=== PATIENT | male | born 1960 | race American Indian/Alaskan Native ===

== ENCOUNTER 2017-05-04 04:39 | Inpatient (IN) | payer OTHER ==
[2017-05-04] MEDS ORDERED: QUELICIN ONE ×2 (04:50→05:21)
[2017-05-04] MEDS ORDERED: KETALAR ONE (04:50)
[2017-05-04] MEDS ORDERED: AMIDATE IV ONE (04:50)
[2017-05-04] MEDS ORDERED: ZEMURON IV ONE (04:50)
[2017-05-04] MEDS ORDERED: VERSED IV ONE ×2 (04:50→08:25)
[2017-05-04] MEDS ORDERED: DIPRIVAN 10 MG/ML IV ONE ×2 (04:56→23:39)
[2017-05-04] MEDS ORDERED: DIPRIVAN 10 MG/ML 1,000 MG/100 ML BOTTLE IV ONE (05:00)
[2017-05-04 05:18] LABS: Hematocrit 45.7 % (35.5-45.6); Hemoglobin 15.6 gm/dl (11.8-15.2); Mean Corpuscular HGB Conc 34 % (32-34); Mean Corpuscular Hemoglobin 30 pg (28-32); Mean Corpuscular Volume 89 fl (84-94); Platelet Count 220 K/mm3 (140-440); Red Blood Count 5.16 M/mm3 (3.65-5.03); Red Cell Distribution Width 14.2 % (13.2-15.2); White Blood Count 6.5 K/mm3 (4.5-11.0)
--- NOTE | 2017-05-04 05:25 | Emergency Department Report ---
ED Chest Pain HPI - General Chief Complaint: Chest Pain Stated Complaint: CP Time Seen by Provider: 05/04/17 04:40 Source: patient, EMS Mode of arrival: Stretcher Limitations: No Limitations - History of Present Illness Initial Comments: A 56-year-old male brought in by EMS with complaints of just chest pain. There was awoken from sleep by chest pain. Upon arrival he ER he suddenly became unresponsive and was having seizure-like activity. His blood pressure was very elevated to the 230s systolic.reading. On the monitor, patient had ventricular tachycardia activity. Reads as high as 210s. Patient was immediately cardioverted. 200 J [ synchronized cardioversion] patient was then intubated emergently Related to history of present having about 6 bypasses. He is very noncompliant. He uses local Remedies for any of his problems MD Complaint: other (unable to obtain history from patient due to his present medical status) -: Sudden Onset: during rest Pain Location: other (anterior chest wall) - Related Data Allergies Allergy/AdvReac Type Severity Reaction Status Date / Time No Known Allergies Allergy Verified 05/04/17 04:54 Heart Score - HEART Score History: Highly suspicious EKG: Significant ST-depression Age: 45-65 Risk factors: > 3 risk factors or hx of atherosclerotic disease Troponin: < normal limit HEART Score: 7 - Critical Actions Critical Actions: >7 pts:50-65% risk of adverse cardiac event. Early invasive measures ED Review of Systems ROS: Stated complaint: CP Other details as noted in HPI Comment: Unobtainable due to pts medical conditions ED Past Medical Hx - Past Medical History Previous Medical History?: Yes Hx Hypertension: Yes Hx Heart Attack/AMI: Yes - Surgical History Past Surgical History?: Yes Additional Surgical History: open heart - Social History Smoking Status: Current Every Day Smoker ED Physical Exam - General Limitations: No Limitations General appearance: in distress (severe distress) - Head Head exam: Present: other (bleeding from his mouth) - ENT ENT exam: Present: mucous membranes moist, other (bleeding from his oral cavity) - Neck Neck exam: Present: normal inspection, full ROM. Absent: tenderness, meningismus, lymphadenopathy - Respiratory Respiratory exam: Present: respiratory distress, wheezes, rales, rhonchi, decreased breath sounds. Absent: chest wall tenderness, accessory muscle use - Cardiovascular Cardiovascular Exam: Present: tachycardia, irregular rhythm - GI/Abdominal GI/Abdominal exam: Present: soft, diminished bowel sounds. Absent: distended, tenderness, guarding, rebound, hyperactive bowel sounds, hypoactive bowel sounds , organomegaly, mass - Rectal Rectal exam: Present: deferred - Extremities Exam Extremities exam: Present: normal inspection, full ROM, normal capillary refill. Absent: pedal edema - Neurological Exam Neurological exam: Present: altered, other (patient's agitated, restless he was immediately intubated) ED Course Vital Signs 05/04/17 05/04/17 05/04/17 05:23 05:24 05:25 Pulse Rate 96 H 99 H 104 H Respiratory 11 L 10 L 18 Rate Blood Pressure 238/176 238/176 238/176 Blood Pressure [Left] O2 Sat by Pulse 95 97 97 Oximetry 05/04/17 05/04/17 05/04/17 05:26 05:27 05:29 Pulse Rate 101 H 98 H 100 H Respiratory 16 16 14 Rate Blood Pressure 225/134 225/134 225/134 Blood Pressure [Left] O2 Sat by Pulse 98 98 98 Oximetry 05/04/17 05/04/17 05/04/17 05:30 05:31 05:32 Pulse Rate 100 H 98 H 97 H Respiratory 15 15 16 Rate Blood Pressure 208/127 208/127 208/127 Blood Pressure [Left] O2 Sat by Pulse 98 98 98 Oximetry 05/04/17 05/04/17 05/04/17 05:33 05:35 05:37 Pulse Rate 98 H 95 H 90 Respiratory 22 12 13 Rate Blood Pressure 208/127 208/127 208/127 Blood Pressure [Left] O2 Sat by Pulse 98 98 99 Oximetry 05/04/17 05/04/17 05/04/17 05:39 05:41 05:43 Pulse Rate 101 H 93 H 89 Respiratory 26 H 20 20 Rate Blood Pressure 208/127 208/127 208/127 Blood Pressure [Left] O2 Sat by Pulse 98 97 96 Oximetry 05/04/17 05/04/17 05/04/17 05:45 05:47 05:49 Pulse Rate 85 86 88 Respiratory 13 14 16 Rate Blood Pressure 152/97 152/97 152/97 Blood Pressure [Left] O2 Sat by Pulse 98 99 100 Oximetry 05/04/17 05/04/17 05/04/17 05:51 05:52 05:53 Pulse Rate 86 85 89 Respiratory 22 16 Rate Blood Pressure 152/97 208/127 208/127 Blood Pressure [Left] O2 Sat by Pulse 99 100 100 Oximetry 05/04/17 05/04/17 05/04/17 06:25 06:27 06:28 Pulse Rate 82 78 81 Respiratory 15 16 15 Rate Blood Pressure 208/127 130/79 130/79 Blood Pressure [Left] O2 Sat by Pulse 99 98 99 Oximetry 05/04/17 05/04/17 05/04/17 06:29 06:31 06:33 Pulse Rate 90 83 82 Respiratory 24 17 14 Rate Blood Pressure 130/79 138/88 132/82 Blood Pressure [Left] O2 Sat by Pulse 98 99 99 Oximetry 05/04/17 05/04/17 05/04/17 06:34 06:35 06:37 Pulse Rate 78 80 79 Respiratory 19 18 17 Rate Blood Pressure 132/82 132/82 130/80 Blood Pressure [Left] O2 Sat by Pulse 99 99 99 Oximetry 05/04/17 05/04/17 05/04/17 06:39 06:40 06:41 Pulse Rate 78 75 77 Respiratory 15 16 15 Rate Blood Pressure 126/77 126/77 126/77 Blood Pressure [Left] O2 Sat by Pulse 99 99 100 Oximetry 05/04/17 05/04/17 05/04/17 06:43 06:45 06:46 Pulse Rate 77 76 78 Respiratory 15 11 L 16 Rate Blood Pressure 123/78 125/78 125/78 Blood Pressure [Left] O2 Sat by Pulse 99 99 99 Oximetry 05/04/17 05/04/17 05/04/17 06:47 06:49 06:51 Pulse Rate 76 76 77 Respiratory 9 L 16 16 Rate Blood Pressure 125/78 127/76 131/81 Blood Pressure [Left] O2 Sat by Pulse 99 99 100 Oximetry 05/04/17 05/04/17 05/04/17 06:52 06:53 06:55 Pulse Rate 74 75 91 H Respiratory 16 16 18 Rate Blood Pressure 131/81 131/81 142/107 Blood Pressure 127/76 [Left] O2 Sat by Pulse 99 100 99 Oximetry - Reevaluation(s) Reevaluation #1: 05/04/17 07:06 Patient signed over to Dr. Bacon - Consultations Consultation #1: 05/04/[address] Corrales, php magento developer on-call. He advised we do a CAT scan of his head to rule out a possible brain bleed. Get patient admitted to the hospitalist and he'll take that in the It Architect later. Hold off on heparin Consultation #2: 05/04/17 07:[address] Reno, she accepts patient for admission - Intubation Sedative: Ketamine Paralytic: Succinylcholine Laryngoscope: Ninfa Size: 3 Assist Device Used: other (gluidescope) Tube Placement Confirmation: visualized tube passing t, equal breath sounds bilat Patient Tolerated Procedure: no complications Intubation Complications: difficult intubation JUDY score - Judy Score Age > 65: (0) No Aspirin use within the Past 7 Days: (0) No 3 or more CAD Risk Factors: (1) Yes 2 or more Angina events in past 24 hrs: (0) No Known CAD with more than 50% Stenosis: (1) Yes Elevated Cardiac Markers: (0) No ST Deviation Greater than 0.5mm: (1) Yes JUDY Score: 3 ED Medical Decision Making - Lab Data Result diagrams: 05/04/17 05:00 05/04/17 05:15 - EKG Data -: EKG Interpreted by Me - EKG Data 05/04/17 07:20 Sinus rhythm with left axis ST depression in the 1 and aVL, LVH, ST elevations in the V1 and V2 and V3 Critical Care Time: Yes Critical care attestation.: If time is entered above; I have spent that time in minutes in the direct care of this critically ill patient, excluding procedure time. Critical Care Time: 45 mins ED Disposition Clinical Impression: Acute coronary syndrome Disposition: DC/TX-65 PSY HOSP/PSY UNIT Is pt being admited?: Yes Does the pt Need Aspirin: Yes Condition: Critical Referrals: PRIMARY CARE, [Primary Care Provider] - 3-5 Days Time of Disposition: 07:22
--- NOTE | 2017-05-04 05:33 | XRay Report ---
FINAL REPORT EXAM: XR CHEST 1V AP HISTORY: E T TUBE PLACEMENT TECHNIQUE: A supine view of the chest was submitted. FINDINGS: The tip of the ET tube is at the be and should be pulled back 2 cm for optimal positioning. The lungs are clear. The heart size is normal. There are sternotomy sutures. Bones and soft tissues well maintained. IMPRESSION: The tip of the ET tube is at the be and should be pulled back 2 cm for optimal positioning No evidence of congestion or infiltrates.
[2017-05-04 05:37] LABS: Anion Gap 20 mmol/L; BUN/Creatinine Ratio 6; Blood Urea Nitrogen 5 mg/dL (9-20); Calcium 8.9 mg/dL (8.4-10.2); Carbon Dioxide 27 mmol/L (22-30); Chloride 97.8 mmol/L (98-107); Glucose 107 mg/dL (75-100); Potassium 3.8 mmol/L (3.6-5.0); Sodium 141 mmol/L (137-145)
[2017-05-04] MEDS ORDERED: TRIDIL DRIP 50MG/250ML 50 MG/250 ML BOTTLE IV SCH (06:00)
[2017-05-04 06:09] LABS: INR 0.86 (0.87-1.13)
[2017-05-04 06:10] LABS: Partial Thromboplastin Time 33.5 Sec. (24.2-36.6)
[2017-05-04 06:14] LABS: Alanine Aminotransferase 17 units/L (7-56); Albumin 4.1 g/dL (3.9-5); Albumin/Globulin Ratio 1.2 %; Alkaline Phosphatase 109 units/L (35-129); Anion Gap 20 mmol/L; BUN/Creatinine Ratio 6; Blood Urea Nitrogen 6 mg/dL (9-20); Carbon Dioxide 27 mmol/L (22-30); Chloride 98.2 mmol/L (98-107); Glucose 108 mg/dL (75-100); Potassium 3.8 mmol/L (3.6-5.0); Sodium 141 mmol/L (137-145); Total Protein 7.6 g/dL (6.3-8.2)
[2017-05-04 06:25] LABS: Basophils % (Manual) 0 % (0.0-1.8); Blastocytes % (Manual) 0 %; Diff Status Complete; RBC Morphology Normal
--- NOTE | 2017-05-04 06:32 | Cat Scan Report ---
FINAL REPORT EXAM: CT HEAD/BRAIN WO CON HISTORY: Seizure like activity, malignant hypertension, TECHNIQUE: Routine axial imaging was obtained of the brain without IV contrast. FINDINGS: There is a remote infarct in the left occipital lobe. There is no evidence of acute stroke or hemorrhage. The ventricular system is appropriate in size and is symmetric. The sinuses are clear. The mastoid air cells are well pneumatized. The calvarium appears intact. IMPRESSION: No evidence of acute stroke or hemorrhage. 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
[2017-05-04 07:07] LABS: ISTAT Base Excess 1; ISTAT HCO3 26.7; ISTAT PCO2 49.1 (35-45); ISTAT PH 7.344 (7.35-7.45); ISTAT PO2 129 (80-105); ISTAT SO2 99; ISTAT TCO2 28
[2017-05-04] MEDS: DIPRIVAN 10 MG/ML 1,000 MG/100 ML BOTTLE IV SCH ×4 (07:23→23:13)
[2017-05-04] MEDS ORDERED: XYLOCAINE 1% 20 mL ONE (07:37)
[2017-05-04] MEDS ORDERED: HEPARIN/NS 5000 UNIT/500ML(CATH LAB) 0 ML IR ONE (07:37)
[2017-05-04] MEDS ORDERED: SUBLIMAZE ONE ×2 (07:38→12:40)
[2017-05-04] MEDS ORDERED: VERSED ONE ×2 (07:38→12:40)
[2017-05-04 07:42] LABS: Urine Drugs of Abuse Note Disclamer
[2017-05-04] MEDS ORDERED: NACL 0.9% 500 ML IV SCH (08:00)
[2017-05-04] MEDS ORDERED: NACL 0.9% 500 ML 500 ML IV SCH (08:00)
[2017-05-04 08:12] LABS: Bilirubin,Urine NEG (Negative); Blood,Urine NEG (Negative); Ketones,Urine NEG (Negative); Leukocyte Esterase,Urine NEG (Negative); Mucus,Urine FEW /HPF; Nitrite,Urine NEG (Negative); Protein,Urine <15 mg/dL mg/dL (Negative); Urobilinogen,Urine < 2.0 mg/dL (<2.0)
--- NOTE | 2017-05-04 08:16 | History and Physical Report ---
<GARY ESCALANTE - Last Filed: 05/04/17 13:05> History of Present Illness Date of examination: 05/04/17 Date of admission: 05/04/2017 Chief complaint: left-side chest pain History of present illness: Patient is a 56 years old black male with past medical history of 6 times bypass, CVA and Hypertension who presented by EMS from home with Left -side chest pain. Patient intubated and sedated therefore, unable to provide detail history. Per ER physician and charts, Patient came in for chest pain; he awoken from sleep by chest pain and called 911. Patient upon arrival to the emergency department he became unresponsive and he had seizure like activities. Patient found to have in hypertensive emergency with blood pressure 238/176 ventricular tachycardia with rate 200's, then cardioverted. Patient unable to protect his airway. Patient intubated and placed on vent support. Patient found to have Sinus rhythm with left axis ST depression in the 1 and aVL, LVH, ST elevations in the V1 and V2 and V3. Cardiology consulted patient is having emergent cath now. No reports of fever, chills, trauma, loss of bowel or bladder continence or recent ill contacts. Past History Past Medical History: hypertension, other (6 times bypass ) Past Surgical History: Other (6 times bypass ) Social history: other (unable to assess due to patient's mental status) Medications and Allergies Allergies Allergy/AdvReac Type Severity Reaction Status Date / Time No Known Allergies Allergy Verified 05/04/17 04:54 Active Meds: Active Medications Nitroglycerin/Dextrose (Tridil Drip 50mg/250ml) 50 mg in 250 mls @ 3 mls/hr IV TITR [facility]; 10 MCG/MIN PRN Reason: Protocol Last Admin: 05/04/17 06:33 Dose: 5 mcg/min, 1.5 mls/hr Propofol (Diprivan 10 Mg/Ml) 1,000 mg in 100 mls @ 3.13 mls/hr IV TITR [facility]; 5 MCG/KG/MIN PRN Reason: Protocol Last Admin: 05/04/17 07:23 Dose: 50 mcg/kg/min, 31.298 mls/hr Sodium Chloride (Nacl 0.9% 500 Ml) 500 mls @ 50 mls/hr IV DIRECT [facility] Stop: 05/04/17 17:59 Sodium Chloride (Nacl 0.9% 500 Ml) 1 ml IV DIRECT [facility] Review of Systems ROS unobtainable: due to mental status (unable to assess due to patient's mental status) Exam - Constitutional Vitals: Temp Pulse Resp BP Pulse Ox 91 H 18 127/76 99 05/04/17 06:55 05/04/17 06:55 05/04/17 06:55 05/04/17 06:55 General appearance: Present: severe distress, other (intubated and sedated) - EENT Eyes: Present: PERRL - Neck Neck: Present: supple - Respiratory Respiratory effort: normal Respiratory: bilateral: CTA - Cardiovascular Rhythm: regular Heart Sounds: Present: S1 & S2 - Abdominal General gastrointestinal: Present: soft, non-tender Male genitourinary: Present: deferred - Rectal Rectal Exam: deferred - Integumentary Integumentary: Present: clear, warm, dry (vital data:) - Musculoskeletal Musculoskeletal: strength equal bilaterally - Psychiatric Psychiatric: agitated, other (intubated and sedated) - Neurologic Neurologic: moves all extremities - Allied Health Allied health notes reviewed: nursing Results - Labs CBC & Chem 7: 05/04/17 05:00 05/04/17 05:15 Labs: Laboratory Last Values WBC 6.5 K/mm3 (4.5-11.0) 05/04/17 05:00 RBC 5.16 M/mm3 (3.65-5.03) H 05/04/17 05:00 Hgb 15.6 gm/dl (11.8-15.2) H 05/04/17 05:00 Hct 45.7 % (35.5-45.6) H 05/04/17 05:00 MCV 89 fl (84-94) 05/04/17 05:00 MCH 30 pg (28-32) 05/04/17 05:00 MCHC 34 % (32-34) 05/04/17 05:00 RDW 14.2 % (13.2-15.2) 05/04/17 05:00 Plt Count 220 K/mm3 (140-440) 05/04/17 05:00 Lymph % (Auto) Medicine Teacher 05/04/17 05:00 Add Manual Diff Complete 05/04/17 05:00 Total Counted 100 05/04/17 05:00 Seg Neutrophils % Medicine Teacher 05/04/17 05:00 Seg Neuts % (Manual) 34.0 % (40.0-70.0) L 05/04/17 05:00 Band Neutrophils % 0 % 05/04/17 05:00 Lymphocytes % (Manual) 56.0 % (13.4-35.0) H 05/04/17 05:00 Reactive Lymphs % (Man) 1.0 % 05/04/17 05:00 Monocytes % (Manual) 7.0 % (0.0-7.3) 05/04/17 05:00 Eosinophils % (Manual) 2.0 % (0.0-4.3) 05/04/17 05:00 Basophils % (Manual) 0 % (0.0-1.8) 05/04/17 05:00 Metamyelocytes % 0 % 05/04/17 05:00 Myelocytes % 0 % 05/04/17 05:00 Promyelocytes % 0 % 05/04/17 05:00 Blast Cells % 0 % 05/04/17 05:00 Nucleated RBC % Not Reportable 05/04/17 05:00 Seg Neutrophils # Man 2.2 K/mm3 (1.8-7.7) 05/04/17 05:00 Band Neutrophils # 0.0 K/mm3 05/04/17 05:00 Lymphocytes # (Manual) 3.6 K/mm3 (1.2-5.4) 05/04/17 05:00 Abs React Lymphs (Man) 0.1 K/mm3 05/04/17 05:00 Monocytes # (Manual) 0.5 K/mm3 (0.0-0.8) 05/04/17 05:00 Eosinophils # (Manual) 0.1 K/mm3 (0.0-0.4) 05/04/17 05:00 Basophils # (Manual) 0.0 K/mm3 (0.0-0.1) 05/04/17 05:00 Metamyelocytes # 0.0 K/mm3 05/04/17 05:00 Myelocytes # 0.0 K/mm3 05/04/17 05:00 Promyelocytes # 0.0 K/mm3 05/04/17 05:00 Blast Cells # 0.0 K/mm3 05/04/17 05:00 WBC Morphology Not Reportable 05/04/17 05:00 Hypersegmented Neuts Not Reportable 05/04/17 05:00 Hyposegmented Neuts Not Reportable 05/04/17 05:00 Hypogranular Neuts Not Reportable 05/04/17 05:00 Smudge Cells Not Reportable 05/04/17 05:00 Toxic Granulation Not Reportable 05/04/17 05:00 Toxic Vacuolation Not Reportable 05/04/17 05:00 Dohle Bodies Not Reportable 05/04/17 05:00 Pelger-Huet Anomaly Not Reportable 05/04/17 05:00 Moni Rods Not Reportable 05/04/17 05:00 Platelet Estimate Appears normal 05/04/17 05:00 Clumped Platelets Not Reportable 05/04/17 05:00 Plt Clumps, EDTA Not Reportable 05/04/17 05:00 Large Platelets Not Reportable 05/04/17 05:00 Giant Platelets Not Reportable 05/04/17 05:00 Platelet Satelliting Not Reportable 05/04/17 05:00 Plt Morphology Comment Not Reportable 05/04/17 05:00 RBC Morphology Normal 05/04/17 05:00 Dimorphic RBCs Not Reportable 05/04/17 05:00 Polychromasia Not Reportable 05/04/17 05:00 Hypochromasia Not Reportable 05/04/17 05:00 Poikilocytosis Not Reportable 05/04/17 05:00 Anisocytosis Not Reportable 05/04/17 05:00 Microcytosis Not Reportable 05/04/17 05:00 Macrocytosis Not Reportable 05/04/17 05:00 Spherocytes Not Reportable 05/04/17 05:00 Pappenheimer Bodies Not Reportable 05/04/17 05:00 Sickle Cells Not Reportable 05/04/17 05:00 Target Cells Not Reportable 05/04/17 05:00 Tear Drop Cells Not Reportable 05/04/17 05:00 Ovalocytes Not Reportable 05/04/17 05:00 Helmet Cells Not Reportable 05/04/17 05:00 [place] Bodies Not Reportable 05/04/17 05:00 Frost Rings Not Reportable 05/04/17 05:00 Viet Cells Not Reportable 05/04/17 05:00 Bite Cells Not Reportable 05/04/17 05:00 Crenated Cell Not Reportable 05/04/17 05:00 Elliptocytes Not Reportable 05/04/17 05:00 Acanthocytes (Spur) Not Reportable 05/04/17 05:00 Rouleaux Not Reportable 05/04/17 05:00 Hemoglobin C Crystals Not Reportable 05/04/17 05:00 Schistocytes Not Reportable 05/04/17 05:00 Malaria parasites Not Reportable 05/04/17 05:00 Gerard Bodies Not Reportable 05/04/17 05:00 Hem Pathologist Commnt No 05/04/17 05:00 PT 12.2 Sec. (12.2-14.9) 05/04/17 05:00 INR 0.86 (0.87-1.13) L 05/04/17 05:00 APTT 33.5 Sec. (24.2-36.6) 05/04/17 05:00 D-Dimer < 135.00 ng/mlDDU (0-234) 05/04/17 05:00 POC ABG pH 7.344 (7.35-7.45) L 05/04/17 06:59 POC ABG pCO2 49.1 (35-45) H 05/04/17 06:59 POC ABG pO2 129 (80-105) H 05/04/17 06:59 POC ABG HCO3 26.7 05/04/17 06:59 POC ABG Total CO2 28 05/04/17 06:59 POC ABG O2 Sat 99 05/04/17 06:59 POC ABG Base Excess 1 05/04/17 06:59 FiO2 50 % 05/04/17 06:59 Sodium 141 mmol/L (137-145) 05/04/17 05:15 Potassium 3.8 mmol/L (3.6-5.0) 05/04/17 05:15 Chloride 98.2 mmol/L (98-107) 05/04/17 05:15 Carbon Dioxide 27 mmol/L (22-30) 05/04/17 05:15 Anion Gap 20 mmol/L 05/04/17 05:15 BUN 6 mg/dL (9-20) L 05/04/17 05:15 Creatinine 1.0 mg/dL (0.8-1.5) 05/04/17 05:15 Estimated GFR > 60 ml/min 05/04/17 05:15 BUN/Creatinine Ratio 6 % 05/04/17 05:15 Glucose 108 mg/dL (75-100) H 05/04/17 05:15 Calcium 9.0 mg/dL (8.4-10.2) 05/04/17 05:15 Magnesium 2.00 mg/dL (1.7-2.3) 05/04/17 05:15 Total Bilirubin 0.50 mg/dL (0.1-1.2) 05/04/17 05:15 AST 24 units/L (5-40) 05/04/17 05:15 ALT 17 units/L (7-56) 05/04/17 05:15 Alkaline Phosphatase 109 units/L (35-129) 05/04/17 05:15 Troponin T < 0.010 ng/mL (0.00-0.029) 05/04/17 05:00 Total Protein 7.6 g/dL (6.3-8.2) 05/04/17 05:15 Albumin 4.1 g/dL (3.9-5) 05/04/17 05:15 Albumin/Globulin Ratio 1.2 % 05/04/17 05:15 Urine Color Yellow (Yellow) 05/04/17 07:41 Urine Turbidity Clear (Clear) 05/04/17 07:41 Urine pH 6.0 (5.0-7.0) 05/04/17 07:41 Ur Specific [place] 1.013 (1.003-1.030) 05/04/17 07:41 Urine Protein <15 mg/dl mg/dL (Negative) 05/04/17 07:41 Urine Glucose (UA) Neg mg/dL (Negative) 05/04/17 07:41 Urine Ketones Neg mg/dL (Negative) 05/04/17 07:41 Urine Blood Neg (Negative) 05/04/17 07:41 Urine Nitrite Neg (Negative) 05/04/17 07:41 Urine Bilirubin Neg (Negative) 05/04/17 07:41 Urine Urobilinogen < 2.0 mg/dL (<2.0) 05/04/17 07:41 Ur Leukocyte Esterase Neg (Negative) 05/04/17 07:41 Urine WBC (Auto) 1.0 /HPF (0.0-6.0) 05/04/17 07:41 Urine RBC (Auto) 4.0 /HPF (0.0-6.0) 05/04/17 07:41 U Epithel Cells (Auto) < 1.0 /HPF (0-13.0) 05/04/17 07:41 Urine Mucus Few /HPF 05/04/17 07:41 - Imaging and Cardiology Chest x-ray: image reviewed (unremarkable) Assessment and Plan Assessment and plan: Patient is a 56 years old black male with past medical history of 6 times bypass, CVA and Hypertension who presented by EMS from home with Left -side chest pain. Patient intubated and sedated therefore, unable to provide detail history. Per ER physician and charts, Patient came in for chest pain; he awoken from sleep by chest pain and called 911. Patient upon arrival to the emergency department he became unresponsive and he had seizure like activities. Patient found to have in hypertensive emergency with blood pressure 238/176 ventricular tachycardia with rate 200's, then cardioverted. Patient unable to protect his airway. Patient intubated and placed on vent support. Acute encephalopathy Most likely due to ACS CT of the head shows, no acute intracranial process; just remote infarct in the left occipital lobe Treat underline cause Intubated/sedated Chest Pain We will admit to telemetry floor. Chest x-ray unremarkable EKG sinus rhythm with left axis ST depression in the 1 and aVL, LVH, ST elevations in the V1 and V2 and V3. Concerning for subacute VT. We will get repeat 12 lead EKG in ordred for any changes that have taken since the first obtained. Emergent Cath now Positive cardiac enzyme X2 Started on statins and complete lipid panel Start on aspirin Nitroglycerin when necessary Morphine ordered for pain Stress test ordered. Seizure CT of the head shows, no acute intracranial process remote infarct in the left occipital lobe MR of the brain ordered EEG pending Neurology consult IV Keppra started Ativan when necessary Frequent neuro assessment Supportive care Hypertension emergency Patient has hypertension but was not on any medication per family member Patient started on NTG drip for now we will transition to IV when BP is improved Closely monitor blood pressure DVT prophylaxis on Lovenox Advance Directives: Yes VTE prophylaxis?: Chemical Contraindication Mechanical VTE Prophylaxis: Treatment Not Indicated Plan of care discussed with patient/family: Yes <BEATRIZ LYNN - Last Filed: 05/05/17 00:05> History of Present Illness Date of admission: 05/04/17 08:18 Medications and Allergies Active Meds: Active Medications Albuterol (Proventil) 2.5 mg IH Q4HRT PRN PRN Reason: Shortness Of Breath Aspirin (Aspirin) 325 mg PO QDAY [facility] Atorvastatin Calcium (Lipitor) 40 mg PO QHS [facility] Last Admin: 05/04/17 22:33 Dose: 40 mg Bisacodyl (Dulcolax) 10 mg UT QDAY PRN PRN Reason: Constipation unrelieved by MOM Clopidogrel Bisulfate (Plavix) 75 mg PO QDAY [facility] Heparin Sodium (Porcine) (Heparin) 5,000 unit SUB-Q Q8HR [facility] Last Admin: 05/04/17 22:32 Dose: 5,000 unit Nitroglycerin/Dextrose (Tridil Drip 50mg/250ml) 50 mg in 250 mls @ 3 mls/hr IV TITR [facility]; 10 MCG/MIN PRN Reason: Protocol Last Titration: 05/04/17 12:53 Dose: 25 mcg/min, 7.5 mls/hr Propofol (Diprivan 10 Mg/Ml) 1,000 mg in 100 mls @ 3.13 mls/hr IV TITR [facility]; 5 MCG/KG/MIN PRN Reason: Protocol Last Admin: 05/04/17 23:13 Dose: 40 mcg/kg/min, 25.038 mls/hr Fentanyl Citrate (Fentanyl Drip Premix) 2,000 mcg in 100 mls @ 5.216 mls/hr IV TITR [facility]; 1 MCG/KG/HR PRN Reason: Protocol Last Admin: 05/04/17 14:30 Dose: 1 mcg/kg/hr, 5.216 mls/hr Levofloxacin/Dextrose (Levaquin 750mg/150ml) 750 mg in 150 mls @ 100 mls/hr IV Q24HR [facility] PRN Reason: Protocol Last Admin: 05/04/17 13:00 Dose: 100 mls/hr Levetiracetam 500 mg/ Sodium (Chloride) 105 mls @ 400 mls/hr IV Q12HR [facility] Last Admin: 05/04/17 23:13 Dose: 400 mls/hr Lorazepam (Ativan) 2 mg IV Q4H PRN PRN Reason: Seizures Metoprolol Tartrate (Lopressor) 50 mg PO BID [facility] Last Admin: 05/04/17 22:33 Dose: 50 mg Morphine Sulfate (Morphine) 2 mg IV Q4H PRN PRN Reason: Pain, Moderate (4-6) Ondansetron HCl (Zofran) 4 mg IV Q4H PRN PRN Reason: Nausea And Vomiting Sodium Chloride (Nacl 0.9% 500 Ml) 1 ml IV DIRECT [facility] Exam - Constitutional Vitals: Temp Pulse Resp BP Pulse Ox 98.8 F 73 16 135/82 99 05/05/17 00:00 05/04/17 23:32 05/04/17 19:41 05/04/17 23:32 05/04/17 23:32 Results - Labs CBC & Chem 7: 05/04/17 16:49 05/04/17 05:15 Labs: Laboratory Last Values WBC 6.5 K/mm3 (4.5-11.0) 05/04/17 05:00 RBC 5.16 M/mm3 (3.65-5.03) H 05/04/17 05:00 Hgb 14.5 gm/dl (11.8-15.2) 05/04/17 16:49 Hct 46.0 % (35.5-45.6) H 05/04/17 16:49 MCV 89 fl (84-94) 05/04/17 05:00 MCH 30 pg (28-32) 05/04/17 05:00 MCHC 34 % (32-34) 05/04/17 05:00 RDW 14.2 % (13.2-15.2) 05/04/17 05:00 Plt Count 243 K/mm3 (140-440) 05/04/17 16:49 Lymph % (Auto) Medicine Teacher 05/04/17 05:00 Add Manual Diff Complete 05/04/17 05:00 Total Counted 100 05/04/17 05:00 Seg Neutrophils % Medicine Teacher 05/04/17 05:00 Seg Neuts % (Manual) 34.0 % (40.0-70.0) L 05/04/17 05:00 Band Neutrophils % 0 % 05/04/17 05:00 Lymphocytes % (Manual) 56.0 % (13.4-35.0) H 05/04/17 05:00 Reactive Lymphs % (Man) 1.0 % 05/04/17 05:00 Monocytes % (Manual) 7.0 % (0.0-7.3) 05/04/17 05:00 Eosinophils % (Manual) 2.0 % (0.0-4.3) 05/04/17 05:00 Basophils % (Manual) 0 % (0.0-1.8) 05/04/17 05:00 Metamyelocytes % 0 % 05/04/17 05:00 Myelocytes % 0 % 05/04/17 05:00 Promyelocytes % 0 % 05/04/17 05:00 Blast Cells % 0 % 05/04/17 05:00 Nucleated RBC % Not Reportable 05/04/17 05:00 Seg Neutrophils # Man 2.2 K/mm3 (1.8-7.7) 05/04/17 05:00 Band Neutrophils # 0.0 K/mm3 05/04/17 05:00 Lymphocytes # (Manual) 3.6 K/mm3 (1.2-5.4) 05/04/17 05:00 Abs React Lymphs (Man) 0.1 K/mm3 05/04/17 05:00 Monocytes # (Manual) 0.5 K/mm3 (0.0-0.8) 05/04/17 05:00 Eosinophils # (Manual) 0.1 K/mm3 (0.0-0.4) 05/04/17 05:00 Basophils # (Manual) 0.0 K/mm3 (0.0-0.1) 05/04/17 05:00 Metamyelocytes # 0.0 K/mm3 05/04/17 05:00 Myelocytes # 0.0 K/mm3 05/04/17 05:00 Promyelocytes # 0.0 K/mm3 05/04/17 05:00 Blast Cells # 0.0 K/mm3 05/04/17 05:00 WBC Morphology Not Reportable 05/04/17 05:00 Hypersegmented Neuts Not Reportable 05/04/17 05:00 Hyposegmented Neuts Not Reportable 05/04/17 05:00 Hypogranular Neuts Not Reportable 05/04/17 05:00 Smudge Cells Not Reportable 05/04/17 05:00 Toxic Granulation Not Reportable 05/04/17 05:00 Toxic Vacuolation Not Reportable 05/04/17 05:00 Dohle Bodies Not Reportable 05/04/17 05:00 Pelger-Huet Anomaly Not Reportable 05/04/17 05:00 Moni Rods Not Reportable 05/04/17 05:00 Platelet Estimate Appears normal 05/04/17 05:00 Clumped Platelets Not Reportable 05/04/17 05:00 Plt Clumps, EDTA Not Reportable 05/04/17 05:00 Large Platelets Not Reportable 05/04/17 05:00 Giant Platelets Not Reportable 05/04/17 05:00 Platelet Satelliting Not Reportable 05/04/17 05:00 Plt Morphology Comment Not Reportable 05/04/17 05:00 RBC Morphology Normal 05/04/17 05:00 Dimorphic RBCs Not Reportable 05/04/17 05:00 Polychromasia Not Reportable 05/04/17 05:00 Hypochromasia Not Reportable 05/04/17 05:00 Poikilocytosis Not Reportable 05/04/17 05:00 Anisocytosis Not Reportable 05/04/17 05:00 Microcytosis Not Reportable 05/04/17 05:00 Macrocytosis Not Reportable 05/04/17 05:00 Spherocytes Not Reportable 05/04/17 05:00 Pappenheimer Bodies Not Reportable 05/04/17 05:00 Sickle Cells Not Reportable 05/04/17 05:00 Target Cells Not Reportable 05/04/17 05:00 Tear Drop Cells Not Reportable 05/04/17 05:00 Ovalocytes Not Reportable 05/04/17 05:00 Helmet Cells Not Reportable 05/04/17 05:00 [place] Bodies Not Reportable 05/04/17 05:00 Frost Rings Not Reportable 05/04/17 05:00 Viet Cells Not Reportable 05/04/17 05:00 Bite Cells Not Reportable 05/04/17 05:00 Crenated Cell Not Reportable 05/04/17 05:00 Elliptocytes Not Reportable 05/04/17 05:00 Acanthocytes (Spur) Not Reportable 05/04/17 05:00 Rouleaux Not Reportable 05/04/17 05:00 Hemoglobin C Crystals Not Reportable 05/04/17 05:00 Schistocytes Not Reportable 05/04/17 05:00 Malaria parasites Not Reportable 05/04/17 05:00 Gerard Bodies Not Reportable 05/04/17 05:00 Hem Pathologist Commnt No 05/04/17 05:00 PT 13.3 Sec. (12.2-14.9) 05/04/17 16:49 INR 0.96 (0.87-1.13) 05/04/17 16:49 APTT 27.8 Sec. (24.2-36.6) 05/04/17 16:49 D-Dimer < 135.00 ng/mlDDU (0-234) 05/04/17 05:00 POC ABG pH 7.344 (7.35-7.45) L 05/04/17 06:59 POC ABG pCO2 49.1 (35-45) H 05/04/17 06:59 POC ABG pO2 129 (80-105) H 05/04/17 06:59 POC ABG HCO3 26.7 05/04/17 06:59 POC ABG Total CO2 28 05/04/17 06:59 POC ABG O2 Sat 99 05/04/17 06:59 POC ABG Base Excess 1 05/04/17 06:59 FiO2 50 % 05/04/17 06:59 Sodium 141 mmol/L (137-145) 05/04/17 05:15 Potassium 3.8 mmol/L (3.6-5.0) 05/04/17 05:15 Chloride 98.2 mmol/L (98-107) 05/04/17 05:15 Carbon Dioxide 27 mmol/L (22-30) 05/04/17 05:15 Anion Gap 20 mmol/L 05/04/17 05:15 BUN 6 mg/dL (9-20) L 05/04/17 05:15 Creatinine 1.0 mg/dL (0.8-1.5) 05/04/17 05:15 Estimated GFR > 60 ml/min 05/04/17 05:15 BUN/Creatinine Ratio 6 % 05/04/17 05:15 Glucose 108 mg/dL (75-100) H 05/04/17 05:15 Calcium 9.0 mg/dL (8.4-10.2) 05/04/17 05:15 Magnesium 2.00 mg/dL (1.7-2.3) 05/04/17 05:15 Total Bilirubin 0.50 mg/dL (0.1-1.2) 05/04/17 05:15 AST 24 units/L (5-40) 05/04/17 05:15 ALT 17 units/L (7-56) 05/04/17 05:15 Alkaline Phosphatase 109 units/L (35-129) 05/04/17 05:15 Troponin T 0.090 ng/mL (0.00-0.029) H 05/04/17 10:13 Total Protein 7.6 g/dL (6.3-8.2) 05/04/17 05:15 Albumin 4.1 g/dL (3.9-5) 05/04/17 05:15 Albumin/Globulin Ratio 1.2 % 05/04/17 05:15 Triglycerides 97 mg/dL (2-149) 05/04/17 07:50 Cholesterol 176 mg/dL (50-199) 05/04/17 07:50 LDL Cholesterol Direct 114 mg/dL (50-130) 05/04/17 07:50 HDL Cholesterol 43 mg/dL (40-59) 05/04/17 07:50 Cholesterol/HDL Ratio 4.09 % 05/04/17 07:50 Urine Color Yellow (Yellow) 05/04/17 07:41 Urine Turbidity Clear (Clear) 05/04/17 07:41 Urine pH 6.0 (5.0-7.0) 05/04/17 07:41 Ur Specific [place] 1.013 (1.003-1.030) 05/04/17 07:41 Urine Protein <15 mg/dl mg/dL (Negative) 05/04/17 07:41 Urine Glucose (UA) Neg mg/dL (Negative) 05/04/17 07:41 Urine Ketones Neg mg/dL (Negative) 05/04/17 07:41 Urine Blood Neg (Negative) 05/04/17 07:41 Urine Nitrite Neg (Negative) 05/04/17 07:41 Urine Bilirubin Neg (Negative) 05/04/17 07:41 Urine Urobilinogen < 2.0 mg/dL (<2.0) 05/04/17 07:41 Ur Leukocyte Esterase Neg (Negative) 05/04/17 07:41 Urine WBC (Auto) 1.0 /HPF (0.0-6.0) 05/04/17 07:41 Urine RBC (Auto) 4.0 /HPF (0.0-6.0) 05/04/17 07:41 U Epithel Cells (Auto) < 1.0 /HPF (0-13.0) 05/04/17 07:41 Urine Mucus Few /HPF 05/04/17 07:41 Urine Opiates Screen Presumptive negative 05/04/17 07:41 Urine Methadone Screen Presumptive negative 05/04/17 07:41 Ur Barbiturates Screen Presumptive negative 05/04/17 07:41 Ur Phencyclidine Scrn Presumptive negative 05/04/17 07:41 Ur Amphetamines Screen Presumptive negative 05/04/17 07:41 U Benzodiazepines Scrn Presumptive positive 05/04/17 07:41 Urine Cocaine Screen Presumptive negative 05/04/17 07:41 U Marijuana (THC) Screen Presumptive positive 05/04/17 07:41 Drugs of Abuse Note Disclamer 05/04/17 07:41 Assessment and Plan Assessment and plan: I saw and evaluated the patient. I agree with the findings and the plan of care as documented in the Nurse Practitioner's~note, with the following corrections and additions.
[2017-05-04] MEDS ORDERED: PROVENTIL IH PRN (09:00)
[2017-05-04] MEDS ORDERED: VERSED IV NR (09:00)
[2017-05-04] MEDS ORDERED: DULCOLAX PR PRN (09:00)
[2017-05-04] MEDS ORDERED: PLAVIX PO ONE (09:00)
[2017-05-04] MEDS ORDERED: ZOFRAN IV PRN (09:00)
--- NOTE | 2017-05-04 09:52 | XRay Report ---
AP CHEST: HISTORY: Nasogastric tube placement The endotracheal tube has been retracted to the level of the clavicles since earlier today at 0510 hours. A nasogastric tube has been inserted which is followed to the fundus of the stomach. 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 Borderline heart size is stable. The lungs are clear. No acute process is noted. IMPRESSION: Unremarkable AP chest. Lines and tubes are in good position.
[2017-05-04] MEDS ORDERED: HEPARIN SUB-Q SCH (10:00)
[2017-05-04] MEDS ORDERED: ATIVAN IV PRN (12:18)
--- NOTE | 2017-05-04 12:33 | Consultation ---
History of Present Illness - Reason for Consult Consult date: 05/04/17 seizure - History of Present Illness I have ordered an EEG and the current doses of keppra IV and Ativan are appropriate for seizure control I will follow up Past History Past Medical History: hypertension, other (6 times bypass ) Past Surgical History: Other (6 times bypass ) Social history: other (unable to assess due to patient's mental status) Medications and Allergies Allergies Allergy/AdvReac Type Severity Reaction Status Date / Time No Known Allergies Allergy Verified 05/04/17 04:54 Active Meds: Active Medications Albuterol (Proventil) 2.5 mg IH Q4HRT PRN PRN Reason: Shortness Of Breath Atorvastatin Calcium (Lipitor) 40 mg PO QHS [facility] Bisacodyl (Dulcolax) 10 mg ID QDAY PRN PRN Reason: Constipation unrelieved by MOM Clopidogrel Bisulfate (Plavix) 75 mg PO QDAY [facility] Heparin Sodium (Porcine) (Heparin) 5,000 unit SUB-Q Q12HR [facility] Last Admin: 05/04/17 10:20 Dose: 5,000 unit Nitroglycerin/Dextrose (Tridil Drip 50mg/250ml) 50 mg in 250 mls @ 3 mls/hr IV TITR [facility]; 10 MCG/MIN PRN Reason: Protocol Last Titration: 05/04/17 11:38 Dose: 20 mcg/min, 6 mls/hr Propofol (Diprivan 10 Mg/Ml) 1,000 mg in 100 mls @ 3.13 mls/hr IV TITR [facility]; 5 MCG/KG/MIN PRN Reason: Protocol Last Admin: 05/04/17 11:00 Dose: 50 mcg/kg/min, 31.298 mls/hr Sodium Chloride (Nacl 0.9% 500 Ml) 500 mls @ 50 mls/hr IV DIRECT [facility] Stop: 05/04/17 17:59 Fentanyl Citrate (Fentanyl Drip Premix) 2,000 mcg in 100 mls @ 5.216 mls/hr IV TITR [facility]; 1 MCG/KG/HR PRN Reason: Protocol Levofloxacin/Dextrose (Levaquin 750mg/150ml) 750 mg in 150 mls @ 100 mls/hr IV Q24HR OSCAR PRN Reason: Protocol Levetiracetam 500 mg/ Sodium (Chloride) 105 mls @ 400 mls/hr IV Q12HR OSCAR Lorazepam (Ativan) 2 mg IV Q4H PRN PRN Reason: Seizures Midazolam HCl (Versed) 2 mg IV ONCE NR Stop: 05/04/17 14:00 Morphine Sulfate (Morphine) 2 mg IV Q4H PRN PRN Reason: Pain, Moderate (4-6) Ondansetron HCl (Zofran) 4 mg IV Q4H PRN PRN Reason: Nausea And Vomiting Sodium Chloride (Nacl 0.9% 500 Ml) 1 ml IV DIRECT OSCAR Exam - Constitutional Vitals: Temp Pulse Resp BP Pulse Ox 97.6 F 77 14 191/117 100 05/04/17 11:01 05/04/17 11:35 05/04/17 11:35 05/04/17 11:35 05/04/17 11:35 Results - Labs CBC & Chem 7: 05/04/17 05:00 05/04/17 05:15 Labs: Abnormal lab results 05/04/17 Range/Units 10:13 Troponin T 0.090 H (0.00-0.029) ng/mL
[2017-05-04] MEDS ORDERED: HEPARIN/NS 5000 UNIT/500ML(CATH LAB) 1,000 ML IR ONE (12:38)
[2017-05-04] MEDS ORDERED: HEPARIN 10,000 UNITS/10 ML ONE (12:39)
[2017-05-04] MEDS ORDERED: XYLOCAINE 2% INFILTRATI ONE ×3 (12:40→17:25)
[2017-05-04] MEDS: LEVAQUIN 750MG/150ML 750 MG/150 ML BAG IV SCH (13:00)
--- NOTE | 2017-05-04 13:46 | Consultation ---
History of Present Illness Consult date: 05/04/17 History of present illness: 56 year old presenting with AMS and found to be in [place] per ER physician - no strips available. Patient received a 200 J DCCV. Patient was intubated due to respiratory failure, he is known to have a history of sleep apnea. Family reports that patient had a CABG 5 years ago in [place]. No anatomy report is available. ECG is showing dynamic anterior T wave changes with inferior Q waves. First set of troponin is negative. Patient is non-compliant and takes herbal supplements at home instead of guidelines directed and proven medications Past History Past Medical History: hypertension, other (6 times bypass ) Past Surgical History: Other (6 times bypass ) Social history: other (unable to assess due to patient's mental status) Medications and Allergies Allergies Allergy/AdvReac Type Severity Reaction Status Date / Time No Known Allergies Allergy Verified 05/04/17 04:54 Active Meds: Active Medications Albuterol (Proventil) 2.5 mg IH Q4HRT PRN PRN Reason: Shortness Of Breath Atorvastatin Calcium (Lipitor) 40 mg PO QHS OSCAR Bisacodyl (Dulcolax) 10 mg MS QDAY PRN PRN Reason: Constipation unrelieved by MOM Clopidogrel Bisulfate (Plavix) 75 mg PO QDAY OSCAR Heparin Sodium (Porcine) (Heparin) 5,000 unit SUB-Q Q12HR OSCAR Last Admin: 05/04/17 10:20 Dose: 5,000 unit Nitroglycerin/Dextrose (Tridil Drip 50mg/250ml) 50 mg in 250 mls @ 3 mls/hr IV TITR OSCAR; 10 MCG/MIN PRN Reason: Protocol Last Titration: 05/04/17 12:53 Dose: 25 mcg/min, 7.5 mls/hr Propofol (Diprivan 10 Mg/Ml) 1,000 mg in 100 mls @ 3.13 mls/hr IV TITR OSCAR; 5 MCG/KG/MIN PRN Reason: Protocol Last Titration: 05/04/17 13:25 Dose: 35 mcg/kg/min, 21.908 mls/hr Sodium Chloride (Nacl 0.9% 500 Ml) 500 mls @ 50 mls/hr IV DIRECT OSCAR Stop: 05/04/17 17:59 Fentanyl Citrate (Fentanyl Drip Premix) 2,000 mcg in 100 mls @ 5.216 mls/hr IV TITR OSCAR; 1 MCG/KG/HR PRN Reason: Protocol Levofloxacin/Dextrose (Levaquin 750mg/150ml) 750 mg in 150 mls @ 100 mls/hr IV Q24HR OSCAR PRN Reason: Protocol Last Admin: 05/04/17 13:00 Dose: 100 mls/hr Levetiracetam 500 mg/ Sodium (Chloride) 105 mls @ 400 mls/hr IV Q12HR OSCAR Lorazepam (Ativan) 2 mg IV Q4H PRN PRN Reason: Seizures Midazolam HCl (Versed) 2 mg IV ONCE NR Stop: 05/04/17 14:00 Morphine Sulfate (Morphine) 2 mg IV Q4H PRN PRN Reason: Pain, Moderate (4-6) Ondansetron HCl (Zofran) 4 mg IV Q4H PRN PRN Reason: Nausea And Vomiting Sodium Chloride (Nacl 0.9% 500 Ml) 1 ml IV DIRECT OSCAR Review of Systems All systems: negative Physical Examination Vital Signs Pulse Resp BP Pulse Ox 96 H 11 L 238/176 95 05/04/17 05:23 05/04/17 05:23 05/04/17 05:23 05/04/17 05:23 General appearance: no acute distress HEENT: Positive: PERRL Cardiac: Positive: Regular Rate Lungs: Positive: Ventilated Respirations Abdomen: Positive: Soft Results 05/04/17 05:00 05/04/17 05:15 Assessment and Plan AMS Ventricular tachycardia s/p DCCV Abnormal ECG CAD s/p CABG 5 years ago in [place] Non-compliance Obesity Recommendations: Continue IV NTG Proceed with LHC
[2017-05-04] MEDS: fentaNYL DRIP Premix 2,000 MCG/100 ML BAG IV SCH (14:30)
--- NOTE | 2017-05-04 15:25 | Event Note ---
Date: 05/04/17 I am informed by the nursing and cathlab staff that patient's cardiac catheterization cannot be performed today because patient has no available bed for accommodation after the anticipated procedure. We will stand ready to perform procedure when staff accommodates.
[2017-05-04] MEDS ORDERED: HEPARIN 10,000 UNITS/10 ML IV ONE (16:38)
[2017-05-04] MEDS ORDERED: HEPARIN/ 0.45% NACL-25,000 UNIT/500 ML 25,000 UNIT/500 ML BAG IV SCH (17:00)
[2017-05-04 17:11] LABS: Hemoglobin 14.5 gm/dl (11.8-15.2)
[2017-05-04] MEDS ORDERED: HEPARIN/NS 5000 UNIT/500ML(CATH LAB) 500 ML IR ONE (17:18)
[2017-05-04] MEDS ORDERED: NACL 0.9% 500 ML 500 ML ONE (17:19)
[2017-05-04 17:32] LABS: INR 0.96 (0.87-1.13)
[2017-05-04 17:33] LABS: Partial Thromboplastin Time 27.8 Sec. (24.2-36.6)
--- NOTE | 2017-05-04 18:19 | Event Note ---
Date: 05/04/17 Cardiac cath performed - no complications Severe [place] vessel disease Patent SVG to Diag Patent SVG to OM Patent SVG to RCA Patent SIMPSON to LAD however distal vessel appears very small ALENA was not used LVEF 45%, basal inferior hypokinesis Recommendations: Medical therapy
--- NOTE | 2017-05-04 20:43 | Cardiac Catherization Report ---
INDICATION FOR PROCEDURE: Non-ST elevation myocardial infarction. ORDERING PHYSICIAN: Venessa Moulton MD PROCEDURES PERFORMED: 1. Selective left and right coronary angiography. 2. Left ventriculography. 3. Angiography of the saphenous vein graft to the diagonal artery. 4. Angiography of the saphenous vein graft to the obtuse marginal. 5. Angiography of the saphenous vein graft to the right coronary artery. 6. Angiography of the SIMPSON graft to the LAD. 7. Angiography of the ALENA vessel. 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 He was draped using sterile technique. A 2% lidocaine was injected into the right groin. A 5-Luxembourger vascular sheath was inserted into the right common femoral artery. A 5-Luxembourger JR4 catheter was used to selectively engage left coronary artery. A 5-Luxembourger JR4 catheter was used to selectively engage the right coronary artery. A 5-Luxembourger JR4 catheter was used to hand inject the left ventriculogram. A 5-Luxembourger JR4 catheter was used to selectively engage the saphenous vein graft to the obtuse marginal. A 5-Luxembourger JR4 catheter was used to selectively engage the saphenous vein graft to the diagonal artery. A 5-Luxembourger RDC catheter was used to selectively engage the saphenous vein graft to the right coronary artery. A 5-Luxembourger IM catheter was used to selectively engage the SIMPSON graft to the LAD. A 5-Luxembourger IM catheter was used to selectively engage none used ALENA vessel. No complications occurred during the procedure. Hemostasis was achieved at the end of the procedure using a 6-Luxembourger Angio-Seal device. ESTIMATED BLOOD LOSS: Minimal. SPECIMEN REMOVED: None. FINDINGS: HEMODYNAMICS: The aortic pressure was 165/64, LV systolic pressure was 167 mmHg and LVEDP 16 mmHg. No gradient was noted across the left ventricular outflow tract. CARDIAC STRUCTURES: The left ventricle is normal in size with a left ventricular ejection fraction estimated at 45%. There is hypokinesis of the mid and basal inferior wall noted. CORONARY ANATOMY: 1. This is a right dominant circulation. 2. The left main has diffuse 30% luminal reduction. 3. The left anterior descending artery has evidence of 100% stenosis in the mid segment. Proximal to this, 100% stenosis of the left anterior descending artery is severely and diffusely diseased. There is evidence of a small diagonal artery that is originating from the proximal segment of the LAD and is supplying collaterals to the distal LAD retrogradely. 4. The left circumflex artery is also severely diffusely diseased. The left circumflex artery is 100% occluded in the midsegment. 5. The right coronary artery is severely diffusely diseased. There is a 90% stenosis of the proximal right coronary artery followed by aneurysmal dilatation. There is a slow flow noted distally. 6. The saphenous vein graft to the diagonal artery is patent with good distal vessel run-off. 7. The saphenous vein graft to the obtuse marginal is patent with good distal vessel run-off. 8. The saphenous vein graft to the right coronary artery is patent with good distal vessel run-off. 9. The SIMPSON graft to the LAD is patent; however, the runoff vessel is extremely small in size. There is evidence of a mild retrograde filling of the proximal LAD. 10. SIMPSON graft was not used for bypass. 11. There is a fourth graft marker that was noted on x-ray; however, a vein graft could not be localized using multiple catheters. IMPRESSION: 1. Severe [place] vessel disease with 100% occlusion of the left anterior descending artery, 100% occlusion of the left circumflex artery and 90% occlusion of the proximal right coronary artery. 2. Patent saphenous vein graft to the diagonal artery. 3. Patent saphenous vein graft to the obtuse marginal. 4. Patent saphenous vein graft to the right coronary artery. 5. Patent left internal mammary artery graft to the left anterior descending artery; however, the distal left anterior descending artery runoff vessel is very small in caliber. 6. Normal left ventricular size with an ejection fraction estimated at 45% and evidence of hypokinesis of the basal and mid inferior wall. 6. Left ventricular end diastolic pressure measured at 16 mmHg. RECOMMENDATIONS: The patient will be recommended for medical therapy. No intervention is needed. JOB# [id number] YNES/SHAYAN
[2017-05-04] MEDS: HEPARIN SUB-Q SCH (22:32)
[2017-05-04] MEDS: LOPRESSOR PO SCH (22:33)
[2017-05-04] MEDS: KEPPRA 500 MG in NACL 0.9% 100 ML IV SCH (23:13)
--- NOTE | 2017-05-05 01:30 | Consultation ---
LOCATION: ER bed 23. HISTORY OF PRESENT ILLNESS: This is a 56-year-old who is admitted to [facility] as a result of being found unresponsive. He was seen in the ED. Spoke with the nurse briefly. He has had vomiting, has a high troponin level, was felt to have an acute IA. At what point, he became unresponsive and had generalized seizures and has been started on Keppra. We do know in the past he has had coronary artery bypass surgery, but otherwise very little history is known on him. There is no family available. He is currently intubated. He moves all extremities. I have reviewed his CT scan. 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 The patient obviously has a remote effect of having seizure. Does not have a history of whether he was taking alcohol or any other compounds that would have triggered the seizure. The nurse did state he was not taking any medication at time of admission to the hospital, is apparently treating his coronary artery disease naturopathically with cayenne pepper by history. PLAN: At this point, go have a coronary cath. We will control his seizure using Keppra and Ativan. CT scan has very benign appearing, I reviewed over it. I will follow the patient with you. JOB# [id number] EILEEN/NTS
[2017-05-05] MEDS: fentaNYL DRIP Premix 2,000 MCG/100 ML BAG IV SCH ×2 (02:48→18:16)
[2017-05-05] MEDS: DIPRIVAN 10 MG/ML 1,000 MG/100 ML BOTTLE IV SCH ×5 (03:44→22:27)
[2017-05-05 04:54] LABS: ISTAT Base Excess 7; ISTAT HCO3 30.8; ISTAT PCO2 43.6 (35-45); ISTAT PH 7.456 (7.35-7.45); ISTAT PO2 146 (80-105); ISTAT SO2 99; ISTAT TCO2 32
[2017-05-05 05:07] LABS: Basophils % (Auto) 0.4 % (0.0-1.8); Eosinophils % (Auto) 0.1 % (0.0-4.3); Hematocrit 42.7 % (35.5-45.6); Hemoglobin 13.7 gm/dl (11.8-15.2); Mean Corpuscular HGB Conc 32 % (32-34); Mean Corpuscular Hemoglobin 29 pg (28-32); Mean Corpuscular Volume 90 fl (84-94); Platelet Count 207 K/mm3 (140-440); Red Blood Count 4.77 M/mm3 (3.65-5.03); Red Cell Distribution Width 14.4 % (13.2-15.2); White Blood Count 8.1 K/mm3 (4.5-11.0)
[2017-05-05 05:11] LABS: Anion Gap 19 mmol/L; BUN/Creatinine Ratio 8; Blood Urea Nitrogen 7 mg/dL (9-20); Calcium 8.6 mg/dL (8.4-10.2); Carbon Dioxide 25 mmol/L (22-30); Chloride 98.2 mmol/L (98-107); Glucose 90 mg/dL (75-100); Potassium 3.8 mmol/L (3.6-5.0); Sodium 138 mmol/L (137-145)
[2017-05-05] MEDS: HEPARIN SUB-Q SCH ×3 (06:44→21:04)
[2017-05-05] MEDS: LEVAQUIN 750MG/150ML 750 MG/150 ML BAG IV SCH (10:21)
[2017-05-05] MEDS: LOPRESSOR PO SCH ×2 (10:21→21:06)
[2017-05-05] MEDS: ASPIRIN PO SCH (10:22)
[2017-05-05] MEDS: PLAVIX PO SCH (10:22)
[2017-05-05] MEDS: KEPPRA 500 MG in NACL 0.9% 100 ML IV SCH ×2 (10:22→21:12)
--- NOTE | 2017-05-05 11:22 | Progress Note ---
Assessment and Plan AMS Ventricular tachycardia s/p DCCV All major bypass grafts are patent Severe [place] vessel disease LVEF 45% by LV gram Abnormal ECG CAD s/p CABG 5 years ago in [place] Non-compliance Obesity Recommendations: Continue medical therapy Obtain echocardiogram No further cardiac intervention needed Subjective Date of service: 05/05/17 Principal diagnosis: Respiratory failure Interval history: No events overnight NTG drip is off SR on tele Objective Vital Signs Temp Pulse Resp BP Pulse Ox 05/05/17 10:21 68 134/73 05/05/17 09:24 16 05/05/17 09:17 68 156/90 67 L 05/05/17 08:41 69 16 147/87 97 05/05/17 08:30 69 16 147/87 97 05/05/17 08:21 69 16 135/78 98 05/05/17 08:11 69 16 135/78 98 05/05/17 08:00 98.4 F 68 16 135/78 97 05/05/17 07:51 69 16 111/67 96 05/05/17 07:41 70 16 111/67 96 05/05/17 07:30 71 16 111/67 95 05/05/17 07:21 69 16 118/85 96 05/05/17 07:11 72 16 118/85 96 05/05/17 07:00 73 16 107/75 96 05/05/17 06:51 72 16 148/82 96 05/05/17 06:41 73 16 148/82 95 05/05/17 06:31 66 16 148/82 98 05/05/17 06:21 73 13 127/75 99 05/05/17 06:11 64 16 127/75 98 05/05/17 06:00 66 16 132/75 99 05/05/17 05:51 67 16 127/75 98 05/05/17 05:41 69 16 127/75 97 05/05/17 05:30 67 16 127/75 98 05/05/17 05:21 70 16 116/73 97 05/05/17 05:11 72 16 116/73 97 05/05/17 05:00 73 16 116/73 98 05/05/17 04:51 76 16 153/98 97 05/05/17 04:41 75 16 153/98 99 05/05/17 04:30 74 16 119/69 98 05/05/17 04:21 84 16 124/70 100 05/05/17 04:11 82 16 124/70 100 05/05/17 04:04 84 153/98 99 05/05/17 04:00 81 16 124/70 99 05/05/17 03:52 97.4 F L 05/05/17 03:51 83 16 153/98 98 05/05/17 03:41 85 16 153/98 98 05/05/17 03:30 85 16 153/98 98 05/05/17 03:21 83 16 197/109 97 05/05/17 03:11 92 H 19 161/92 99 05/05/17 03:01 72 16 165/96 100 05/05/17 02:51 67 17 148/87 99 05/05/17 02:41 70 16 148/87 100 05/05/17 02:30 70 16 148/87 100 05/05/17 02:21 68 16 144/86 99 05/05/17 02:11 70 16 144/86 100 05/05/17 02:00 68 16 144/86 99 05/05/17 01:51 70 16 135/82 100 05/05/17 01:41 73 16 135/82 100 05/05/17 01:30 69 16 135/82 98 05/05/17 01:21 69 16 131/79 100 05/05/17 01:11 69 16 131/79 100 05/05/17 01:00 69 16 131/79 99 05/05/17 00:51 70 16 141/83 99 05/05/17 00:41 71 16 141/83 100 05/05/17 00:30 67 16 141/83 100 05/05/17 00:21 77 16 129/82 98 05/05/17 00:19 24 99 05/05/17 00:11 71 16 129/82 99 05/05/17 00:00 98.8 F 71 16 129/82 99 05/04/17 23:51 71 16 135/82 99 05/04/17 23:41 68 16 135/82 98 05/04/17 23:32 73 135/82 99 05/04/17 23:30 70 16 135/82 97 05/04/17 23:21 72 16 135/80 98 05/04/17 23:11 73 16 135/80 98 05/04/17 23:00 72 16 135/80 97 05/04/17 22:51 77 15 124/77 98 05/04/17 22:41 79 16 148/89 96 05/04/17 22:33 79 148/89 05/04/17 22:30 79 16 148/89 97 05/04/17 22:21 79 16 174/104 97 05/04/17 22:10 75 16 174/104 99 05/04/17 22:01 96 H 16 204/127 99 05/04/17 21:51 76 16 181/103 98 05/04/17 21:41 78 16 181/103 97 05/04/17 21:31 77 16 181/103 97 05/04/17 21:21 81 16 181/103 98 05/04/17 21:11 78 16 181/103 99 05/04/17 21:00 77 16 145/90 100 05/04/17 20:51 77 16 134/87 100 05/04/17 20:41 78 16 134/87 98 05/04/17 20:31 80 16 134/87 99 05/04/17 20:21 78 16 134/87 99 05/04/17 20:19 100 05/04/17 20:11 78 16 158/96 100 05/04/17 20:00 77 16 158/96 100 05/04/17 19:51 83 16 134/87 99 05/04/17 19:50 82 134/87 99 05/04/17 19:43 82 16 134/87 98 05/04/17 19:41 80 16 134/87 98 05/04/17 19:31 80 16 134/87 98 05/04/17 19:30 98 F 05/04/17 19:21 82 16 134/87 98 05/04/17 19:11 82 16 143/90 98 05/04/17 19:00 81 16 143/90 98 05/04/17 18:51 79 16 156/96 98 05/04/17 18:41 76 16 173/107 97 05/04/17 18:31 71 16 173/107 100 05/04/17 18:29 16 L 77 H 05/04/17 18:25 77 15 173/107 100 05/04/17 16:41 92 H 13 148/94 97 05/04/17 16:30 94 H 17 135/85 95 05/04/17 16:21 99 H 15 144/99 97 05/04/17 16:11 97 H 17 144/99 98 05/04/17 16:00 93 H 16 148/94 97 05/04/17 15:51 92 H 16 144/99 97 05/04/17 15:41 93 H 16 144/99 98 05/04/17 15:30 91 H 15 144/99 05/04/17 15:21 94 H 15 177/116 98 05/04/17 15:11 89 17 177/116 99 05/04/17 15:00 90 17 177/116 99 05/04/17 14:51 92 H 16 182/120 100 05/04/17 14:41 92 H 13 182/120 100 05/04/17 14:30 94 H 14 182/120 100 05/04/17 14:21 100 H 16 155/106 99 05/04/17 14:11 99 H 15 155/106 100 05/04/17 14:00 102 H 18 149/104 99 05/04/17 13:51 100 H 17 155/106 99 05/04/17 13:41 99 H 16 155/106 99 05/04/17 13:30 99 H 19 155/106 99 05/04/17 13:21 98 H 17 176/116 99 05/04/17 13:19 176/116 99 05/04/17 13:17 176/116 99 05/04/17 13:10 100 H 15 176/116 100 05/04/17 13:09 97 H 16 176/116 100 05/04/17 13:07 90 16 176/116 97 05/04/17 13:05 87 20 176/116 100 05/04/17 13:03 91 H 16 176/116 100 05/04/17 13:01 92 H 17 176/116 100 05/04/17 13:00 92 H 17 176/116 100 05/04/17 12:59 92 H 16 211/135 100 05/04/17 12:57 92 H 17 211/135 100 05/04/17 12:55 90 16 211/135 100 05/04/17 12:53 87 19 211/135 100 05/04/17 12:51 87 17 211/135 100 05/04/17 12:49 87 17 211/135 100 05/04/17 12:47 84 15 211/135 100 05/04/17 12:45 87 16 211/135 100 05/04/17 12:43 88 16 211/135 100 05/04/17 12:41 86 17 211/135 100 05/04/17 12:39 85 17 211/135 100 05/04/17 12:37 82 16 211/135 100 05/04/17 12:35 89 19 211/135 100 05/04/17 12:33 82 16 211/135 99 05/04/17 12:31 90 15 211/135 99 05/04/17 12:29 90 20 205/125 100 05/04/17 12:27 94 H 19 205/125 100 05/04/17 12:25 205/125 100 05/04/17 12:23 85 19 205/125 100 05/04/17 12:21 86 10 L 205/125 100 05/04/17 12:19 81 20 205/125 99 05/04/17 12:17 19 205/125 100 05/04/17 12:15 17 205/125 98 05/04/17 12:13 12 205/125 100 05/04/17 12:11 0 L 205/125 99 05/04/17 12:09 14 205/125 100 05/04/17 12:07 86 16 205/125 100 05/04/17 12:05 82 14 205/125 100 05/04/17 12:03 79 16 205/125 100 05/04/17 12:01 82 16 205/125 100 05/04/17 12:00 82 15 205/125 100 05/04/17 11:59 79 16 191/117 100 05/04/17 11:57 79 18 191/117 100 05/04/17 11:55 88 16 191/117 99 05/04/17 11:53 88 12 191/117 98 05/04/17 11:51 89 15 191/117 100 05/04/17 11:49 79 16 191/117 100 05/04/17 11:47 78 16 191/117 100 05/04/17 11:45 78 16 191/117 100 05/04/17 11:43 85 14 191/117 100 05/04/17 11:41 76 16 191/117 100 05/04/17 11:39 79 16 191/117 100 05/04/17 11:37 77 16 117 100 05/04/17 11:35 77 14 117 100 05/04/17 11:33 86 13 117 100 05/04/17 11:31 78 16 117 100 05/04/17 11:30 77 16 117 100 05/04/17 11:29 81 17 165/110 100 05/04/17 11:27 79 16 165/110 100 05/04/17 11:25 82 16 165/110 100 05/04/17 11:23 79 16 165/110 100 - Physical Examination HEENT: Positive: PERRL Neck: Positive: neck supple Cardiac: Positive: Reg Rate and Rhythm Lungs: Positive: Normal Exam, Ventilated Respirations Abdomen: Positive: Soft - Labs and Meds Coagulation 05/04/17 Range/Units 16:49 PT 13.3 (12.2-14.9) Sec. INR 0.96 (0.87-1.13) APTT 27.8 (24.2-36.6) Sec. CBC 05/04/17 05/05/17 Range/Units 16:49 04:27 WBC 8.1 (4.5-11.0) K/mm3 RBC 4.77 (3.65-5.03) M/mm3 Hgb 14.5 13.7 (11.8-15.2) gm/dl Hct 46.0 H 42.7 (35.5-45.6) % Plt Count 243 207 (140-440) K/mm3 Lymph # 1.5 (1.2-5.4) K/mm3 [place] # 0.8 (0.0-0.8) K/mm3 Eos # 0.0 (0.0-0.4) K/mm3 Baso # 0.0 (0.0-0.1) K/mm3 Comprehensive Metabolic Panel 05/05/17 Range/Units 04:27 Sodium 138 (137-145) mmol/L Potassium 3.8 (3.6-5.0) mmol/L Chloride 98.2 (98-107) mmol/L Carbon Dioxide 25 (22-30) mmol/L BUN 7 L (9-20) mg/dL Creatinine 0.9 (0.8-1.5) mg/dL Glucose 90 (75-100) mg/dL Calcium 8.6 (8.4-10.2) mg/dL
[2017-05-05] MEDS ORDERED: Fluarix Quad 2017-2018(36 MOS+ IM ONE (12:00)
--- NOTE | 2017-05-05 13:09 | Progress Note ---
Assessment and Plan Assessment and plan: Patient is a 56-year-old man with history of coronary artery disease status post CABG and hypertension who presented from home to the emergency department via EMS due to severe chest pain awaken him out of sleep. In the emergency department, he went into V. tach w/extremely hypertension and syncopal seizure activity requiring cardioversion followed by intubation. He was found to have ST elevation and was sent to cardiac catheterization which showed severe [facility] disease but patent cardiac grafts with ejection fraction 45%. Patient doesn't believe in Western medications, he takes black walnut extract daily, garlic and multiple other herbals per his sister, Sky Schwartz ([place]). I spoke with cousin Tessa, sister Sky at nursing station (pt is , has multiple children, mother is alive, father is ) -Acute hypoxic respiratory failure due to dangerous arrhythmia: Continue mechanical ventilator, consult to critical care medicine -Unstable ventricular tachycardia status post cardioversion: Echo ordered, cardiology following -Chest pain, most likely related to vasospasm: We'll defer to cardiology -Syncopal seizure most likely due to arrhythmia: brain mri ordered, on [facility], neuro consulted -Acute encephalopathy due to the above -DVT prophylaxis: Subcutaneous heparin History Interval history: Patient was seen and examined. He is intubated and sedated. Danyell Cho at bedside. Hospitalist Physical - Physical exam Narrative exam: GEN: ill appearing intubated and sedated HEENT: NCAT, ETT in place NECK: supple, no adenopathy, no thyromegaly, no JVD CVS/HEART: RRR, NORMAL S1S2, NO JVD, pulses present bilaterally CHEST/LUNGS: CTA B, Symmetrical chest expansion, good air entry bilaterally GI/Abdomen: soft, NTND, good bowel sounds, no guarding or rebound /Bladder: no suprapubic tenderness, no CVA or paraspinal tenderness EXT/Skin: no c/c/e, no obvious rash MSK: spontaneous movement x 4 Neuro: sedated Psych: wakes up when sedation reduced - Constitutional Vitals: Temp Pulse Resp BP Pulse Ox 98.4 F 68 16 134/73 99 05/05/17 08:00 05/05/17 11:15 05/05/17 09:24 05/05/17 10:21 05/05/17 11:15 General appearance: Present: no acute distress Results - Labs CBC & Chem 7: 05/05/17 04:27 05/05/17 04:27 Labs: Laboratory Last Values WBC 8.1 K/mm3 (4.5-11.0) 05/05/17 04:27 RBC 4.77 M/mm3 (3.65-5.03) 05/05/17 04:27 Hgb 13.7 gm/dl (11.8-15.2) 05/05/17 04:27 Hct 42.7 % (35.5-45.6) 05/05/17 04:27 MCV 90 fl (84-94) 05/05/17 04:27 MCH 29 pg (28-32) 05/05/17 04:27 MCHC 32 % (32-34) 05/05/17 04:27 RDW 14.4 % (13.2-15.2) 05/05/17 04:27 Plt Count 207 K/mm3 (140-440) 05/05/17 04:27 Lymph % (Auto) 18.3 % (13.4-35.0) 05/05/17 04:27 Otero % (Auto) 9.6 % (0.0-7.3) H 05/05/17 04:27 Eos % (Auto) 0.1 % (0.0-4.3) 05/05/17 04:27 Baso % (Auto) 0.4 % (0.0-1.8) 05/05/17 04:27 Lymph # 1.5 K/mm3 (1.2-5.4) 05/05/17 04:27 Otero # 0.8 K/mm3 (0.0-0.8) 05/05/17 04:27 Eos # 0.0 K/mm3 (0.0-0.4) 05/05/17 04:27 Baso # 0.0 K/mm3 (0.0-0.1) 05/05/17 04:27 Add Manual Diff Complete 05/04/17 05:00 Total Counted 100 05/04/17 05:00 Seg Neutrophils % 71.6 % (40.0-70.0) H 05/05/17 04:27 Seg Neuts % (Manual) 34.0 % (40.0-70.0) L 05/04/17 05:00 Band Neutrophils % 0 % 05/04/17 05:00 Lymphocytes % (Manual) 56.0 % (13.4-35.0) H 05/04/17 05:00 Reactive Lymphs % (Man) 1.0 % 05/04/17 05:00 Monocytes % (Manual) 7.0 % (0.0-7.3) 05/04/17 05:00 Eosinophils % (Manual) 2.0 % (0.0-4.3) 05/04/17 05:00 Basophils % (Manual) 0 % (0.0-1.8) 05/04/17 05:00 Metamyelocytes % 0 % 05/04/17 05:00 Myelocytes % 0 % 05/04/17 05:00 Promyelocytes % 0 % 05/04/17 05:00 Blast Cells % 0 % 05/04/17 05:00 Nucleated RBC % Not Reportable 05/04/17 05:00 Seg Neutrophils # 5.8 K/mm3 (1.8-7.7) 05/05/17 04:27 Seg Neutrophils # Man 2.2 K/mm3 (1.8-7.7) 05/04/17 05:00 Band Neutrophils # 0.0 K/mm3 05/04/17 05:00 Lymphocytes # (Manual) 3.6 K/mm3 (1.2-5.4) 05/04/17 05:00 Abs React Lymphs (Man) 0.1 K/mm3 05/04/17 05:00 Monocytes # (Manual) 0.5 K/mm3 (0.0-0.8) 05/04/17 05:00 Eosinophils # (Manual) 0.1 K/mm3 (0.0-0.4) 05/04/17 05:00 Basophils # (Manual) 0.0 K/mm3 (0.0-0.1) 05/04/17 05:00 Metamyelocytes # 0.0 K/mm3 05/04/17 05:00 Myelocytes # 0.0 K/mm3 05/04/17 05:00 Promyelocytes # 0.0 K/mm3 05/04/17 05:00 Blast Cells # 0.0 K/mm3 05/04/17 05:00 WBC Morphology Not Reportable 05/04/17 05:00 Hypersegmented Neuts Not Reportable 05/04/17 05:00 Hyposegmented Neuts Not Reportable 05/04/17 05:00 Hypogranular Neuts Not Reportable 05/04/17 05:00 Smudge Cells Not Reportable 05/04/17 05:00 Toxic Granulation Not Reportable 05/04/17 05:00 Toxic Vacuolation Not Reportable 05/04/17 05:00 Dohle Bodies Not Reportable 05/04/17 05:00 Pelger-Huet Anomaly Not Reportable 05/04/17 05:00 Moni Rods Not Reportable 05/04/17 05:00 Platelet Estimate Appears normal 05/04/17 05:00 Clumped Platelets Not Reportable 05/04/17 05:00 Plt Clumps, EDTA Not Reportable 05/04/17 05:00 Large Platelets Not Reportable 05/04/17 05:00 Giant Platelets Not Reportable 05/04/17 05:00 Platelet Satelliting Not Reportable 05/04/17 05:00 Plt Morphology Comment Not Reportable 05/04/17 05:00 RBC Morphology Normal 05/04/17 05:00 Dimorphic RBCs Not Reportable 05/04/17 05:00 Polychromasia Not Reportable 05/04/17 05:00 Hypochromasia Not Reportable 05/04/17 05:00 Poikilocytosis Not Reportable 05/04/17 05:00 Anisocytosis Not Reportable 05/04/17 05:00 Microcytosis Not Reportable 05/04/17 05:00 Macrocytosis Not Reportable 05/04/17 05:00 Spherocytes Not Reportable 05/04/17 05:00 Pappenheimer Bodies Not Reportable 05/04/17 05:00 Sickle Cells Not Reportable 05/04/17 05:00 Target Cells Not Reportable 05/04/17 05:00 Tear Drop Cells Not Reportable 05/04/17 05:00 Ovalocytes Not Reportable 05/04/17 05:00 Helmet Cells Not Reportable 05/04/17 05:00 [place] Bodies Not Reportable 05/04/17 05:00 [place] Rings Not Reportable 05/04/17 05:00 Viet Cells Not Reportable 05/04/17 05:00 Bite Cells Not Reportable 05/04/17 05:00 Crenated Cell Not Reportable 05/04/17 05:00 Elliptocytes Not Reportable 05/04/17 05:00 Acanthocytes (Spur) Not Reportable 05/04/17 05:00 Rouleaux Not Reportable 05/04/17 05:00 Hemoglobin C Crystals Not Reportable 05/04/17 05:00 Schistocytes Not Reportable 05/04/17 05:00 Malaria parasites Not Reportable 05/04/17 05:00 Gerard Bodies Not Reportable 05/04/17 05:00 Hem Pathologist Commnt No 05/04/17 05:00 PT 13.3 Sec. (12.2-14.9) 05/04/17 16:49 INR 0.96 (0.87-1.13) 05/04/17 16:49 APTT 27.8 Sec. (24.2-36.6) 05/04/17 16:49 D-Dimer < 135.00 ng/mlDDU (0-234) 05/04/17 05:00 POC ABG pH 7.456 (7.35-7.45) H 05/05/17 04:50 POC ABG pCO2 43.6 (35-45) 05/05/17 04:50 POC ABG pO2 146 (80-105) H 05/05/17 04:50 POC ABG HCO3 30.8 05/05/17 04:50 POC ABG Total CO2 32 05/05/17 04:50 POC ABG O2 Sat 99 05/05/17 04:50 POC ABG Base Excess 7 05/05/17 04:50 FiO2 40 % 05/05/17 04:50 Sodium 138 mmol/L (137-145) 05/05/17 04:27 Potassium 3.8 mmol/L (3.6-5.0) 05/05/17 04:27 Chloride 98.2 mmol/L (98-107) 05/05/17 04:27 Carbon Dioxide 25 mmol/L (22-30) 05/05/17 04:27 Anion Gap 19 mmol/L 05/05/17 04:27 BUN 7 mg/dL (9-20) L 05/05/17 04:27 Creatinine 0.9 mg/dL (0.8-1.5) 05/05/17 04:27 Estimated GFR > 60 ml/min 05/05/17 04:27 BUN/Creatinine Ratio 8 % 05/05/17 04:27 Glucose 90 mg/dL (75-100) 05/05/17 04:27 Calcium 8.6 mg/dL (8.4-10.2) 05/05/17 04:27 Magnesium 2.00 mg/dL (1.7-2.3) 05/04/17 05:15 Total Bilirubin 0.50 mg/dL (0.1-1.2) 05/04/17 05:15 AST 24 units/L (5-40) 05/04/17 05:15 ALT 17 units/L (7-56) 05/04/17 05:15 Alkaline Phosphatase 109 units/L (35-129) 05/04/17 05:15 Troponin T 0.090 ng/mL (0.00-0.029) H 05/04/17 10:13 Total Protein 7.6 g/dL (6.3-8.2) 05/04/17 05:15 Albumin 4.1 g/dL (3.9-5) 05/04/17 05:15 Albumin/Globulin Ratio 1.2 % 05/04/17 05:15 Triglycerides 97 mg/dL (2-149) 05/04/17 07:50 Cholesterol 176 mg/dL (50-199) 05/04/17 07:50 LDL Cholesterol Direct 114 mg/dL (50-130) 05/04/17 07:50 HDL Cholesterol 43 mg/dL (40-59) 05/04/17 07:50 Cholesterol/HDL Ratio 4.09 % 05/04/17 07:50 Urine Color Yellow (Yellow) 05/04/17 07:41 Urine Turbidity Clear (Clear) 05/04/17 07:41 Urine pH 6.0 (5.0-7.0) 05/04/17 07:41 Ur Specific [place] 1.013 (1.003-1.030) 05/04/17 07:41 Urine Protein <15 mg/dl mg/dL (Negative) 05/04/17 07:41 Urine Glucose (UA) Neg mg/dL (Negative) 05/04/17 07:41 Urine Ketones Neg mg/dL (Negative) 05/04/17 07:41 Urine Blood Neg (Negative) 05/04/17 07:41 Urine Nitrite Neg (Negative) 05/04/17 07:41 Urine Bilirubin Neg (Negative) 05/04/17 07:41 Urine Urobilinogen < 2.0 mg/dL (<2.0) 05/04/17 07:41 Ur Leukocyte Esterase Neg (Negative) 05/04/17 07:41 Urine WBC (Auto) 1.0 /HPF (0.0-6.0) 05/04/17 07:41 Urine RBC (Auto) 4.0 /HPF (0.0-6.0) 05/04/17 07:41 U Epithel Cells (Auto) < 1.0 /HPF (0-13.0) 05/04/17 07:41 Urine Mucus Few /HPF 05/04/17 07:41 Urine Opiates Screen Presumptive negative 05/04/17 07:41 Urine Methadone Screen Presumptive negative 05/04/17 07:41 Ur Barbiturates Screen Presumptive negative 05/04/17 07:41 Ur Phencyclidine Scrn Presumptive negative 05/04/17 07:41 Ur Amphetamines Screen Presumptive negative 05/04/17 07:41 U Benzodiazepines Scrn Presumptive positive 05/04/17 07:41 Urine Cocaine Screen Presumptive negative 05/04/17 07:41 U Marijuana (THC) Screen Presumptive positive 05/04/17 07:41 Drugs of Abuse Note Disclamer 05/04/17 07:41
[2017-05-06] MEDS: MORPHINE IV PRN ×3 (01:14→20:16)
[2017-05-06] MEDS: APRESOLINE IV PRN ×2 (01:55→11:00)
[2017-05-06] MEDS: DIPRIVAN 10 MG/ML 1,000 MG/100 ML BOTTLE IV SCH ×3 (02:19→09:35)
[2017-05-06] MEDS: fentaNYL DRIP Premix 2,000 MCG/100 ML BAG IV SCH (03:55)
[2017-05-06 04:12] LABS: Hematocrit 43.8 % (35.5-45.6); Hemoglobin 14.1 gm/dl (11.8-15.2); Mean Corpuscular HGB Conc 32 % (32-34); Mean Corpuscular Hemoglobin 29 pg (28-32); Mean Corpuscular Volume 90 fl (84-94); Platelet Count 186 K/mm3 (140-440); Red Blood Count 4.89 M/mm3 (3.65-5.03); Red Cell Distribution Width 14.1 % (13.2-15.2); White Blood Count 7.2 K/mm3 (4.5-11.0)
[2017-05-06 04:26] LABS: ISTAT Base Excess 4; ISTAT HCO3 27.4; ISTAT PCO2 37.2 (35-45); ISTAT PH 7.474 (7.35-7.45); ISTAT PO2 120 (80-105); ISTAT SO2 99; ISTAT TCO2 28
[2017-05-06 04:34] LABS: Anion Gap 17 mmol/L; BUN/Creatinine Ratio 9; Blood Urea Nitrogen 8 mg/dL (9-20); Calcium 8.8 mg/dL (8.4-10.2); Carbon Dioxide 25 mmol/L (22-30); Chloride 99.1 mmol/L (98-107); Glucose 73 mg/dL (75-100); Sodium 137 mmol/L (137-145)
[2017-05-06] MEDS ORDERED: D50W (25GM) Vial IV ONE (05:47)
[2017-05-06] MEDS: HEPARIN SUB-Q SCH ×3 (05:59→21:20)
[2017-05-06] MEDS: PLAVIX PO SCH (09:36)
[2017-05-06] MEDS: LOPRESSOR PO SCH ×2 (09:36→21:21)
[2017-05-06] MEDS: ASPIRIN PO SCH (09:36)
[2017-05-06] MEDS: LEVAQUIN 750MG/150ML 750 MG/150 ML BAG IV SCH (09:37)
--- NOTE | 2017-05-06 10:25 | Progress Note ---
Assessment and Plan AMS Ventricular tachycardia s/p DCCV All major bypass grafts are patent Severe chinik vessel disease LVEF 45% by LV gram Abnormal ECG CAD s/p CABG 5 years ago in [place] Non-compliance Obesity Recommendations: Continue medical therapy Obtain echocardiogram Start amlodipine 5 mg po daily for BP reduction No further cardiac intervention needed Subjective Date of service: 05/06/17 Principal diagnosis: Respiratory failure Interval history: No events overnight Family at bedside this morning Objective Vital Signs Temp Pulse Pulse Resp Resp BP Pulse Ox 05/06/17 09:36 76 170/92 05/06/17 09:30 73 16 170/92 95 05/06/17 09:20 162/89 98 05/06/17 09:00 71 15 162/89 98 05/06/17 08:30 69 20 169/88 99 05/06/17 08:00 98 F 66 16 126/74 99 05/06/17 07:30 70 16 126/74 98 05/06/17 07:00 71 16 129/74 97 05/06/17 06:30 69 16 164/83 99 05/06/17 06:00 66 16 154/83 100 05/06/17 05:30 68 16 130/66 99 05/06/17 05:00 68 16 154/80 100 05/06/17 04:30 69 16 154/80 100 05/06/17 04:15 74 161/90 100 05/06/17 04:00 73 15 161/90 99 05/06/17 03:38 99.2 F 05/06/17 03:30 68 16 142/81 97 05/06/17 03:00 72 16 149/80 97 05/06/17 02:40 17 99 05/06/17 02:30 69 16 168/92 97 05/06/17 02:00 73 16 168/92 97 05/06/17 01:55 63 189/100 05/06/17 01:44 14 05/06/17 01:30 73 16 189/100 99 05/06/17 01:15 66 17 99 05/06/17 01:14 20 05/06/17 01:00 66 16 174/94 99 05/06/17 00:30 66 16 165/88 99 05/06/17 00:00 85 14 160/88 98 05/05/17 23:30 66 16 147/83 97 05/05/17 23:19 98.4 F 05/05/17 23:05 67 147/86 99 05/05/17 23:00 65 16 147/86 99 05/05/17 22:30 66 16 147/83 99 05/05/17 22:00 67 16 138/82 99 05/05/17 21:30 67 16 143/83 99 05/05/17 21:07 69 16 146/86 100 05/05/17 21:06 70 146/86 05/05/17 21:00 69 16 146/86 99 05/05/17 20:30 68 16 167/96 99 05/05/17 20:00 69 16 158/104 100 05/05/17 19:53 97.9 F 05/05/17 19:50 69 166/101 99 05/05/17 19:30 71 16 166/101 99 05/05/17 19:00 69 16 16 181/114 99 05/05/17 18:30 69 16 164/94 98 05/05/17 18:00 67 16 162/94 98 05/05/17 17:48 68 179/97 98 05/05/17 17:30 69 16 172/97 97 05/05/17 17:00 69 16 166/95 97 05/05/17 16:30 71 16 174/99 97 05/05/17 16:00 70 71 16 176/95 97 05/05/17 15:30 69 16 186/105 98 05/05/17 15:00 69 16 184/104 98 05/05/17 14:30 67 16 175/102 98 05/05/17 14:00 69 16 177/102 99 05/05/17 13:31 66 16 166/97 100 05/05/17 13:21 67 16 150/83 100 05/05/17 13:11 68 16 150/83 99 05/05/17 13:00 65 14 150/83 100 05/05/17 12:51 68 16 141/82 98 05/05/17 12:41 69 16 141/82 98 05/05/17 12:30 69 16 141/82 98 05/05/17 12:21 70 16 137/76 99 05/05/17 12:13 67 19 99 05/05/17 12:11 71 16 137/76 99 05/05/17 12:00 98.1 F 68 16 137/76 99 05/05/17 11:51 71 16 146/81 98 05/05/17 11:41 68 16 146/81 98 05/05/17 11:30 66 16 146/81 99 05/05/17 11:21 83 14 136/72 99 05/05/17 11:15 68 99 05/05/17 11:11 83 18 134/78 98 05/05/17 11:00 65 16 134/78 97 05/05/17 10:51 80 14 136/72 97 05/05/17 10:41 65 16 136/72 95 05/05/17 10:30 68 17 136/72 95 - Physical Examination HEENT: Positive: PERRL Neck: Positive: neck supple Cardiac: Positive: Reg Rate and Rhythm Lungs: Positive: Ventilated Respirations Abdomen: Positive: Soft - Labs and Meds CBC 05/06/17 Range/Units 03:22 WBC 7.2 (4.5-11.0) K/mm3 RBC 4.89 (3.65-5.03) M/mm3 Hgb 14.1 (11.8-15.2) gm/dl Hct 43.8 (35.5-45.6) % Plt Count 186 (140-440) K/mm3 Comprehensive Metabolic Panel 05/06/17 Range/Units 03:22 Sodium 137 (137-145) mmol/L Potassium 4.0 (3.6-5.0) mmol/L Chloride 99.1 (98-107) mmol/L Carbon Dioxide 25 (22-30) mmol/L BUN 8 L (9-20) mg/dL Creatinine 0.9 (0.8-1.5) mg/dL Glucose 73 L (75-100) mg/dL Calcium 8.8 (8.4-10.2) mg/dL
[2017-05-06] MEDS ORDERED: LASIX IV ONE (10:46)
--- NOTE | 2017-05-06 10:55 | Consultation ---
History of Present Illness Consult date: 05/06/17 Requesting physician: GREGG WEAVER Reason for consult: other (acute respiratory failure) History of present illness: 56 y/o male with VTACh, status post cardioversion, apparently unable to protect his airway and intubated. Went to labor representative, ef estimated at 45. Per family at bedside, patient will need life vest at discharge. Currently on minimal vent support. BP remains elevated and has been since admission. Remainder is negative. Currently on Fent and Propofol but will wake up when they are off. Past History Past Medical History: hypertension, other (6 times bypass ) Past Surgical History: Other (6 times bypass ) Social history: other (unable to assess due to patient's mental status) Medications and Allergies Allergies Allergy/AdvReac Type Severity Reaction Status Date / Time No Known Allergies Allergy Verified 05/04/17 04:54 Active Meds: Active Medications Albuterol (Proventil) 2.5 mg IH Q4HRT PRN PRN Reason: Shortness Of Breath Amlodipine Besylate (Norvasc) 5 mg PO QDAY [facility] Aspirin (Aspirin) 325 mg PO QDAY [facility] Last Admin: 05/06/17 09:36 Dose: 325 mg Atorvastatin Calcium (Lipitor) 40 mg PO QHS [facility] Last Admin: 05/05/17 21:06 Dose: 40 mg Bisacodyl (Dulcolax) 10 mg TX QDAY PRN PRN Reason: Constipation unrelieved by MOM Clopidogrel Bisulfate (Plavix) 75 mg PO QDAY [facility] Last Admin: 05/06/17 09:36 Dose: 75 mg Furosemide (Lasix) 40 mg IV ONCE ONE Stop: 05/06/17 10:47 Heparin Sodium (Porcine) (Heparin) 5,000 unit SUB-Q Q8HR [facility] Last Admin: 05/06/17 05:59 Dose: 5,000 unit Hydralazine HCl (Apresoline) 10 mg IV Q4H PRN PRN Reason: SBP > 180 OR DBP > 110 Last Admin: 05/06/17 01:55 Dose: 10 mg Propofol (Diprivan 10 Mg/Ml) 1,000 mg in 100 mls @ 3.13 mls/hr IV TITR [facility]SCAR; 5 MCG/KG/MIN PRN Reason: Protocol Last Admin: 05/06/17 09:35 Dose: 40 mcg/kg/min, 25.038 mls/hr Fentanyl Citrate (Fentanyl Drip Premix) 2,000 mcg in 100 mls @ 5.216 mls/hr IV TITR [facility]SCAR; 1 MCG/KG/HR PRN Reason: Protocol Last Admin: 05/06/17 03:55 Dose: 2 mcg/kg/hr, 10.433 mls/hr Levofloxacin/Dextrose (Levaquin 750mg/150ml) 750 mg in 150 mls @ 100 mls/hr IV Q24HR [facility] PRN Reason: Protocol Last Admin: 05/06/17 09:37 Dose: 100 mls/hr Levetiracetam 500 mg/ Sodium (Chloride) 105 mls @ 400 mls/hr IV Q12HR [facility] Last Admin: 05/05/17 21:12 Dose: 400 mls/hr Lorazepam (Ativan) 2 mg IV Q4H PRN PRN Reason: Seizures Metoprolol Tartrate (Lopressor) 50 mg PO BID [facility] Last Admin: 05/06/17 09:36 Dose: 50 mg Morphine Sulfate (Morphine) 2 mg IV Q4H PRN PRN Reason: Pain, Moderate (4-6) Last Admin: 05/06/17 01:14 Dose: 2 mg Ondansetron HCl (Zofran) 4 mg IV Q4H PRN PRN Reason: Nausea And Vomiting Review of Systems ROS unobtainable: due to endotracheal tube, due to mental status Physical Examination Vital signs: Vital Signs Pulse Resp BP Pulse Ox 96 H 11 L 238/176 95 05/04/17 05:23 05/04/17 05:23 05/04/17 05:23 05/04/17 05:23 General appearance: no acute distress, appears uncomfortable Eyes: injected ENT: other (orally intubated and sedated) Effort: mildly labored Ascultation: Bilateral: clear Percussion: Bilateral: not dull Cardiovascular: regular rate and rhythm Gastrointestinal: normoactive bowel sounds, soft, non-tender Extremities: no edema Results - Laboratory Findings CBC and BMP: 05/06/17 03:22 05/06/17 03:22 ABG POC ABG pH 7.474 (7.35-7.45) H 05/06/17 04:24 POC ABG pCO2 37.2 (35-45) 05/06/17 04:24 POC ABG pO2 120 (80-105) H 05/06/17 04:24 POC ABG HCO3 27.4 05/06/17 04:24 POC ABG Total CO2 28 05/06/17 04:24 POC ABG O2 Sat 99 05/06/17 04:24 PT/INR, D-dimer PT 13.3 Sec. (12.2-14.9) 05/04/17 16:49 INR 0.96 (0.87-1.13) 05/04/17 16:49 D-Dimer < 135.00 ng/mlDDU (0-234) 05/04/17 05:00 Abnormal lab findings: Abnormal Labs 05/04/17 05/04/17 05/05/17 10:13 16:49 04:27 Hct 46.0 H Crock[place] % (Auto) 9.6 H Seg Neutrophils % 71.6 H POC ABG pH POC ABG pO2 BUN Glucose POC Glucose Troponin T 0.090 H 05/05/17 05/05/17 05/06/17 04:27 04:50 03:22 Hct [place] % (Auto) Seg Neutrophils % POC ABG pH 7.456 H POC ABG pO2 146 H BUN 7 L 8 L Glucose 73 L POC Glucose Troponin T 05/06/17 05/06/17 04:24 06:45 Hct [place] % (Auto) Seg Neutrophils % POC ABG pH 7.474 H POC ABG pO2 120 H BUN Glucose POC Glucose 115 H Troponin T - Diagnostic Findings Chest x-ray: image reviewed (Clear, evidence of prior thoracic surgery with median sternotomy wires) Assessment and Plan 56 y/o male with known CAD, admitted with Vtach arrest and acute respiratory failure. 1. lasix 40mg IV x1 now 2. PRN hydralazine 3. Discontinue all sedation 4. Attempt extubation CCT 31 minutes
[2017-05-06] MEDS: KEPPRA 500 MG in NACL 0.9% 100 ML IV SCH ×2 (11:01→21:19)
[2017-05-06] MEDS: NORVASC PO SCH (11:05)
--- NOTE | 2017-05-06 12:49 | Progress Note ---
Assessment and Plan Assessment and plan: Patient is a 56-year-old man with history of coronary artery disease status post CABG and hypertension who presented from home to the emergency department via EMS due to severe chest pain awaken him out of sleep. In the emergency department, he went into V. tach w/extremely hypertension and syncopal seizure activity requiring cardioversion followed by intubation. He was found to have ST elevation and was sent to cardiac catheterization which showed severe [place] disease but patent cardiac grafts with ejection fraction 45%. Patient doesn't believe in Western medications, he takes black walnut extract daily, garlic and multiple other herbals per his sister, Sky Schwartz ([place]). I spoke with cousin Tessa, sister Sky at nursing station (pt is , has multiple children, mother is alive, father is ) -Acute hypoxic respiratory failure due to dangerous arrhythmia: Continue mechanical ventilator, consult to critical care medicine -Unstable ventricular tachycardia status post cardioversion: Echo ordered, cardiology following -Chest pain, most likely related to vasospasm: We'll defer to cardiology -Syncopal seizure most likely due to arrhythmia: brain mri ordered, on [facility], neuro consulted -Acute encephalopathy due to the above -DVT prophylaxis: Subcutaneous heparin sister Sky and daughter at bedside. Extubate today History Interval history: Patient was seen and examined. He is intubated and sedated. Danyell Cho at bedside. Hospitalist Physical - Physical exam Narrative exam: GEN: ill appearing intubated and sedated HEENT: NCAT, ETT in place NECK: supple, no adenopathy, no thyromegaly, no JVD CVS/HEART: RRR, NORMAL S1S2, NO JVD, pulses present bilaterally CHEST/LUNGS: CTA B, Symmetrical chest expansion, good air entry bilaterally GI/Abdomen: soft, NTND, good bowel sounds, no guarding or rebound /Bladder: no suprapubic tenderness, no CVA or paraspinal tenderness EXT/Skin: no c/c/e, no obvious rash MSK: spontaneous movement x 4 Neuro: sedated Psych: wakes up when sedation reduced - Constitutional Vitals: Temp Pulse Resp BP Pulse Ox 98 F 97 H 12 178/96 95 05/06/17 08:00 05/06/17 11:05 05/06/17 12:06 05/06/17 11:05 05/06/17 09:30 General appearance: Present: no acute distress Results - Labs CBC & Chem 7: 05/06/17 03:22 05/06/17 03:22 Labs: Laboratory Last Values WBC 7.2 K/mm3 (4.5-11.0) 05/06/17 03:22 RBC 4.89 M/mm3 (3.65-5.03) 05/06/17 03:22 Hgb 14.1 gm/dl (11.8-15.2) 05/06/17 03:22 Hct 43.8 % (35.5-45.6) 05/06/17 03:22 MCV 90 fl (84-94) 05/06/17 03:22 MCH 29 pg (28-32) 05/06/17 03:22 MCHC 32 % (32-34) 05/06/17 03:22 RDW 14.1 % (13.2-15.2) 05/06/17 03:22 Plt Count 186 K/mm3 (140-440) 05/06/17 03:22 Lymph % (Auto) 18.3 % (13.4-35.0) 05/05/17 04:27 [place] % (Auto) 9.6 % (0.0-7.3) H 05/05/17 04:27 Eos % (Auto) 0.1 % (0.0-4.3) 05/05/17 04:27 Baso % (Auto) 0.4 % (0.0-1.8) 05/05/17 04:27 Lymph # 1.5 K/mm3 (1.2-5.4) 05/05/17 04:27 [place] # 0.8 K/mm3 (0.0-0.8) 05/05/17 04:27 Eos # 0.0 K/mm3 (0.0-0.4) 05/05/17 04:27 Baso # 0.0 K/mm3 (0.0-0.1) 05/05/17 04:27 Add Manual Diff Complete 05/04/17 05:00 Total Counted 100 05/04/17 05:00 Seg Neutrophils % 71.6 % (40.0-70.0) H 05/05/17 04:27 Seg Neuts % (Manual) 34.0 % (40.0-70.0) L 05/04/17 05:00 Band Neutrophils % 0 % 05/04/17 05:00 Lymphocytes % (Manual) 56.0 % (13.4-35.0) H 05/04/17 05:00 Reactive Lymphs % (Man) 1.0 % 05/04/17 05:00 Monocytes % (Manual) 7.0 % (0.0-7.3) 05/04/17 05:00 Eosinophils % (Manual) 2.0 % (0.0-4.3) 05/04/17 05:00 Basophils % (Manual) 0 % (0.0-1.8) 05/04/17 05:00 Metamyelocytes % 0 % 05/04/17 05:00 Myelocytes % 0 % 05/04/17 05:00 Promyelocytes % 0 % 05/04/17 05:00 Blast Cells % 0 % 05/04/17 05:00 Nucleated RBC % Not Reportable 05/04/17 05:00 Seg Neutrophils # 5.8 K/mm3 (1.8-7.7) 05/05/17 04:27 Seg Neutrophils # Man 2.2 K/mm3 (1.8-7.7) 05/04/17 05:00 Band Neutrophils # 0.0 K/mm3 05/04/17 05:00 Lymphocytes # (Manual) 3.6 K/mm3 (1.2-5.4) 05/04/17 05:00 Abs React Lymphs (Man) 0.1 K/mm3 05/04/17 05:00 Monocytes # (Manual) 0.5 K/mm3 (0.0-0.8) 05/04/17 05:00 Eosinophils # (Manual) 0.1 K/mm3 (0.0-0.4) 05/04/17 05:00 Basophils # (Manual) 0.0 K/mm3 (0.0-0.1) 05/04/17 05:00 Metamyelocytes # 0.0 K/mm3 05/04/17 05:00 Myelocytes # 0.0 K/mm3 05/04/17 05:00 Promyelocytes # 0.0 K/mm3 05/04/17 05:00 Blast Cells # 0.0 K/mm3 05/04/17 05:00 WBC Morphology Not Reportable 05/04/17 05:00 Hypersegmented Neuts Not Reportable 05/04/17 05:00 Hyposegmented Neuts Not Reportable 05/04/17 05:00 Hypogranular Neuts Not Reportable 05/04/17 05:00 Smudge Cells Not Reportable 05/04/17 05:00 Toxic Granulation Not Reportable 05/04/17 05:00 Toxic Vacuolation Not Reportable 05/04/17 05:00 Dohle Bodies Not Reportable 05/04/17 05:00 Pelger-[place]uet Anomaly Not Reportable 05/04/17 05:00 Moni Rods Not Reportable 05/04/17 05:00 Platelet Estimate Appears normal 05/04/17 05:00 Clumped Platelets Not Reportable 05/04/17 05:00 Plt Clumps, EDTA Not Reportable 05/04/17 05:00 Large Platelets Not Reportable 05/04/17 05:00 Giant Platelets Not Reportable 05/04/17 05:00 Platelet Satelliting Not Reportable 05/04/17 05:00 Plt Morphology Comment Not Reportable 05/04/17 05:00 RBC Morphology Normal 05/04/17 05:00 Dimorphic RBCs Not Reportable 05/04/17 05:00 Polychromasia Not Reportable 05/04/17 05:00 Hypochromasia Not Reportable 05/04/17 05:00 Poikilocytosis Not Reportable 05/04/17 05:00 Anisocytosis Not Reportable 05/04/17 05:00 Microcytosis Not Reportable 05/04/17 05:00 Macrocytosis Not Reportable 05/04/17 05:00 Spherocytes Not Reportable 05/04/17 05:00 Pappenheimer Bodies Not Reportable 05/04/17 05:00 Sickle Cells Not Reportable 05/04/17 05:00 Target Cells Not Reportable 05/04/17 05:00 Tear Drop Cells Not Reportable 05/04/17 05:00 Ovalocytes Not Reportable 05/04/17 05:00 Helmet Cells Not Reportable 05/04/17 05:00 [place] Bodies Not Reportable 05/04/17 05:00 [place] Rings Not Reportable 05/04/17 05:00 [place] Cells Not Reportable 05/04/17 05:00 Bite Cells Not Reportable 05/04/17 05:00 Crenated Cell Not Reportable 05/04/17 05:00 Elliptocytes Not Reportable 05/04/17 05:00 Acanthocytes (Spur) Not Reportable 05/04/17 05:00 Rouleaux Not Reportable 05/04/17 05:00 Hemoglobin C Crystals Not Reportable 05/04/17 05:00 Schistocytes Not Reportable 05/04/17 05:00 Malaria parasites Not Reportable 05/04/17 05:00 Gerard Bodies Not Reportable 05/04/17 05:00 Hem Pathologist Commnt No 05/04/17 05:00 PT 13.3 Sec. (12.2-14.9) 05/04/17 16:49 INR 0.96 (0.87-1.13) 05/04/17 16:49 APTT 27.8 Sec. (24.2-36.6) 05/04/17 16:49 D-Dimer < 135.00 ng/mlDDU (0-234) 05/04/17 05:00 POC ABG pH 7.474 (7.35-7.45) H 05/06/17 04:24 POC ABG pCO2 37.2 (35-45) 05/06/17 04:24 POC ABG pO2 120 (80-105) H 05/06/17 04:24 POC ABG HCO3 27.4 05/06/17 04:24 POC ABG Total CO2 28 05/06/17 04:24 POC ABG O2 Sat 99 05/06/17 04:24 POC ABG Base Excess 4 05/06/17 04:24 FiO2 28 % 05/06/17 04:24 Sodium 137 mmol/L (137-145) 05/06/17 03:22 Potassium 4.0 mmol/L (3.6-5.0) 05/06/17 03:22 Chloride 99.1 mmol/L (98-107) 05/06/17 03:22 Carbon Dioxide 25 mmol/L (22-30) 05/06/17 03:22 Anion Gap 17 mmol/L 05/06/17 03:22 BUN 8 mg/dL (9-20) L 05/06/17 03:22 Creatinine 0.9 mg/dL (0.8-1.5) 05/06/17 03:22 Estimated GFR > 60 ml/min 05/06/17 03:22 BUN/Creatinine Ratio 9 % 05/06/17 03:22 Glucose 73 mg/dL (75-100) L 05/06/17 03:22 POC Glucose 115 (70-105) H 05/06/17 06:45 Calcium 8.8 mg/dL (8.4-10.2) 05/06/17 03:22 Magnesium 1.90 mg/dL (1.7-2.3) 05/06/17 03:22 Total Bilirubin 0.50 mg/dL (0.1-1.2) 05/04/17 05:15 AST 24 units/L (5-40) 05/04/17 05:15 ALT 17 units/L (7-56) 05/04/17 05:15 Alkaline Phosphatase 109 units/L (35-129) 05/04/17 05:15 Troponin T 0.090 ng/mL (0.00-0.029) H 05/04/17 10:13 Total Protein 7.6 g/dL (6.3-8.2) 05/04/17 05:15 Albumin 4.1 g/dL (3.9-5) 05/04/17 05:15 Albumin/Globulin Ratio 1.2 % 05/04/17 05:15 Triglycerides 97 mg/dL (2-149) 05/04/17 07:50 Cholesterol 176 mg/dL (50-199) 05/04/17 07:50 LDL Cholesterol Direct 114 mg/dL (50-130) 05/04/17 07:50 HDL Cholesterol 43 mg/dL (40-59) 05/04/17 07:50 Cholesterol/HDL Ratio 4.09 % 05/04/17 07:50 Urine Color Yellow (Yellow) 05/04/17 07:41 Urine Turbidity Clear (Clear) 05/04/17 07:41 Urine pH 6.0 (5.0-7.0) 05/04/17 07:41 Ur Specific [place] 1.013 (1.003-1.030) 05/04/17 07:41 Urine Protein <15 mg/dl mg/dL (Negative) 05/04/17 07:41 Urine Glucose (UA) Neg mg/dL (Negative) 05/04/17 07:41 Urine Ketones Neg mg/dL (Negative) 05/04/17 07:41 Urine Blood Neg (Negative) 05/04/17 07:41 Urine Nitrite Neg (Negative) 05/04/17 07:41 Urine Bilirubin Neg (Negative) 05/04/17 07:41 Urine Urobilinogen < 2.0 mg/dL (<2.0) 05/04/17 07:41 Ur Leukocyte Esterase Neg (Negative) 05/04/17 07:41 Urine WBC (Auto) 1.0 /HPF (0.0-6.0) 05/04/17 07:41 Urine RBC (Auto) 4.0 /HPF (0.0-6.0) 05/04/17 07:41 U Epithel Cells (Auto) < 1.0 /HPF (0-13.0) 05/04/17 07:41 Urine Mucus Few /HPF 05/04/17 07:41 Urine Opiates Screen Presumptive negative 05/04/17 07:41 Urine Methadone Screen Presumptive negative 05/04/17 07:41 Ur Barbiturates Screen Presumptive negative 05/04/17 07:41 Ur Phencyclidine Scrn Presumptive negative 05/04/17 07:41 Ur Amphetamines Screen Presumptive negative 05/04/17 07:41 U Benzodiazepines Scrn Presumptive positive 05/04/17 07:41 Urine Cocaine Screen Presumptive negative 05/04/17 07:41 U Marijuana (THC) Screen Presumptive positive 05/04/17 07:41 Drugs of Abuse Note Disclamer 05/04/17 07:41
[2017-05-07] MEDS: HEPARIN SUB-Q SCH ×3 (05:42→22:43)
[2017-05-07] MEDS ORDERED: PEPCID IV SCH (10:00)
[2017-05-07] MEDS: PLAVIX PO SCH (10:23)
[2017-05-07] MEDS: KEPPRA PO SCH ×2 (10:23→22:00)
[2017-05-07] MEDS: ASPIRIN PO SCH (10:23)
[2017-05-07] MEDS: LOPRESSOR PO SCH ×2 (10:23→22:42)
[2017-05-07] MEDS: LEVAQUIN PO SCH (10:23)
[2017-05-07] MEDS: NORVASC PO SCH (10:24)
--- NOTE | 2017-05-07 11:50 | Progress Note ---
Assessment and Plan Assessment and plan: Patient is a 56-year-old man with history of coronary artery disease status post CABG and hypertension who presented from home to the emergency department via EMS due to severe chest pain awaken him out of sleep. In the emergency department, he went into V. tach w/extremely hypertension and syncopal seizure activity requiring cardioversion followed by intubation. He was found to have ST elevation and was sent to cardiac catheterization which showed severe [place] disease but patent cardiac grafts with ejection fraction 45%. Patient doesn't believe in Western medications, he takes black walnut extract daily, garlic and multiple other herbals per his sister, Sky Schwartz ([place]). I spoke with cousin Tessa, sister Sky at nursing station (pt is , has multiple children, mother is alive, father is ) -Acute hypoxic respiratory failure due to dangerous arrhythmia: Continue mechanical ventilator, consult to critical care medicine -Unstable ventricular tachycardia status post cardioversion: Echo ordered, cardiology following -Chest pain, most likely related to vasospasm: We'll defer to cardiology -Syncopal seizure most likely due to arrhythmia: brain mri ordered, on [facility], neuro consulted -Acute encephalopathy due to the above -DVT prophylaxis: Subcutaneous heparin sister Sky at bedside. Extubate 05/06/2017 He is refusing MRI Scheduled for cardiac catheterization tomorrow Okay to transfer out of ICU History Interval history: Patient was seen and examined. Follow-up on current diagnosis/chest pain but has resolved. Overnight uneventful. Patient denies any chest pain, shortness breath, nausea/vomiting or severe headaches. Imaging, nursing note, chart, labs and old chart reviewed. Discussed with patient. Hospitalist Physical - Physical exam Narrative exam: GEN: No acute distress awake alert oriented 3 HEENT: NCAT, perrl eomi NECK: supple, no adenopathy, no thyromegaly, no JVD CVS/HEART: RRR, NORMAL S1S2, NO JVD, pulses present bilaterally CHEST/LUNGS: CTA B, Symmetrical chest expansion, good air entry bilaterally GI/Abdomen: soft, NTND, good bowel sounds, no guarding or rebound /Bladder: no suprapubic tenderness, no CVA or paraspinal tenderness EXT/Skin: no c/c/e, no obvious rash MSK: L4 OM 4 Neuro: No focal deficits Psych: Calm - Constitutional Vitals: Temp Pulse Resp BP Pulse Ox 98.6 F 89 12 158/85 99 05/07/17 11:34 05/07/17 10:24 05/07/17 10:00 05/07/17 10:24 05/07/17 10:00 General appearance: Present: no acute distress Results - Labs CBC & Chem 7: 05/06/17 03:22 05/06/17 03:22 Labs: Laboratory Last Values WBC 7.2 K/mm3 (4.5-11.0) 05/06/17 03:22 RBC 4.89 M/mm3 (3.65-5.03) 05/06/17 03:22 Hgb 14.1 gm/dl (11.8-15.2) 05/06/17 03:22 Hct 43.8 % (35.5-45.6) 05/06/17 03:22 MCV 90 fl (84-94) 05/06/17 03:22 MCH 29 pg (28-32) 05/06/17 03:22 MCHC 32 % (32-34) 05/06/17 03:22 RDW 14.1 % (13.2-15.2) 05/06/17 03:22 Plt Count 186 K/mm3 (140-440) 05/06/17 03:22 Lymph % (Auto) 18.3 % (13.4-35.0) 05/05/17 04:27 [place] % (Auto) 9.6 % (0.0-7.3) H 05/05/17 04:27 Eos % (Auto) 0.1 % (0.0-4.3) 05/05/17 04:27 Baso % (Auto) 0.4 % (0.0-1.8) 05/05/17 04:27 Lymph # 1.5 K/mm3 (1.2-5.4) 05/05/17 04:27 [place] # 0.8 K/mm3 (0.0-0.8) 05/05/17 04:27 Eos # 0.0 K/mm3 (0.0-0.4) 05/05/17 04:27 Baso # 0.0 K/mm3 (0.0-0.1) 05/05/17 04:27 Add Manual Diff Complete 05/04/17 05:00 Total Counted 100 05/04/17 05:00 Seg Neutrophils % 71.6 % (40.0-70.0) H 05/05/17 04:27 Seg Neuts % (Manual) 34.0 % (40.0-70.0) L 05/04/17 05:00 Band Neutrophils % 0 % 05/04/17 05:00 Lymphocytes % (Manual) 56.0 % (13.4-35.0) H 05/04/17 05:00 Reactive Lymphs % (Man) 1.0 % 05/04/17 05:00 Monocytes % (Manual) 7.0 % (0.0-7.3) 05/04/17 05:00 Eosinophils % (Manual) 2.0 % (0.0-4.3) 05/04/17 05:00 Basophils % (Manual) 0 % (0.0-1.8) 05/04/17 05:00 Metamyelocytes % 0 % 05/04/17 05:00 Myelocytes % 0 % 05/04/17 05:00 Promyelocytes % 0 % 05/04/17 05:00 Blast Cells % 0 % 05/04/17 05:00 Nucleated RBC % Not Reportable 05/04/17 05:00 Seg Neutrophils # 5.8 K/mm3 (1.8-7.7) 05/05/17 04:27 Seg Neutrophils # Man 2.2 K/mm3 (1.8-7.7) 05/04/17 05:00 Band Neutrophils # 0.0 K/mm3 05/04/17 05:00 Lymphocytes # (Manual) 3.6 K/mm3 (1.2-5.4) 05/04/17 05:00 Abs React Lymphs (Man) 0.1 K/mm3 05/04/17 05:00 Monocytes # (Manual) 0.5 K/mm3 (0.0-0.8) 05/04/17 05:00 Eosinophils # (Manual) 0.1 K/mm3 (0.0-0.4) 05/04/17 05:00 Basophils # (Manual) 0.0 K/mm3 (0.0-0.1) 05/04/17 05:00 Metamyelocytes # 0.0 K/mm3 05/04/17 05:00 Myelocytes # 0.0 K/mm3 05/04/17 05:00 Promyelocytes # 0.0 K/mm3 05/04/17 05:00 Blast Cells # 0.0 K/mm3 05/04/17 05:00 WBC Morphology Not Reportable 05/04/17 05:00 Hypersegmented Neuts Not Reportable 05/04/17 05:00 Hyposegmented Neuts Not Reportable 05/04/17 05:00 Hypogranular Neuts Not Reportable 05/04/17 05:00 Smudge Cells Not Reportable 05/04/17 05:00 Toxic Granulation Not Reportable 05/04/17 05:00 Toxic Vacuolation Not Reportable 05/04/17 05:00 Dohle Bodies Not Reportable 05/04/17 05:00 Pelger-Huet Anomaly Not Reportable 05/04/17 05:00 Moni Rods Not Reportable 05/04/17 05:00 Platelet Estimate Appears normal 05/04/17 05:00 Clumped Platelets Not Reportable 05/04/17 05:00 Plt Clumps, EDTA Not Reportable 05/04/17 05:00 Large Platelets Not Reportable 05/04/17 05:00 Giant Platelets Not Reportable 05/04/17 05:00 Platelet Satelliting Not Reportable 05/04/17 05:00 Plt Morphology Comment Not Reportable 05/04/17 05:00 RBC Morphology Normal 05/04/17 05:00 Dimorphic RBCs Not Reportable 05/04/17 05:00 Polychromasia Not Reportable 05/04/17 05:00 Hypochromasia Not Reportable 05/04/17 05:00 Poikilocytosis Not Reportable 05/04/17 05:00 Anisocytosis Not Reportable 05/04/17 05:00 Microcytosis Not Reportable 05/04/17 05:00 Macrocytosis Not Reportable 05/04/17 05:00 Spherocytes Not Reportable 05/04/17 05:00 Pappenheimer Bodies Not Reportable 05/04/17 05:00 Sickle Cells Not Reportable 05/04/17 05:00 Target Cells Not Reportable 05/04/17 05:00 Tear Drop Cells Not Reportable 05/04/17 05:00 Ovalocytes Not Reportable 05/04/17 05:00 Helmet Cells Not Reportable 05/04/17 05:00 [place] Bodies Not Reportable 05/04/17 05:00 [place] Rings Not Reportable 05/04/17 05:00 Viet Cells Not Reportable 05/04/17 05:00 Bite Cells Not Reportable 05/04/17 05:00 Crenated Cell Not Reportable 05/04/17 05:00 Elliptocytes Not Reportable 05/04/17 05:00 Acanthocytes (Spur) Not Reportable 05/04/17 05:00 Rouleaux Not Reportable 05/04/17 05:00 Hemoglobin C Crystals Not Reportable 05/04/17 05:00 Schistocytes Not Reportable 05/04/17 05:00 Malaria parasites Not Reportable 05/04/17 05:00 Gerard Bodies Not Reportable 05/04/17 05:00 Hem Pathologist Commnt No 05/04/17 05:00 PT 13.3 Sec. (12.2-14.9) 05/04/17 16:49 INR 0.96 (0.87-1.13) 05/04/17 16:49 APTT 27.8 Sec. (24.2-36.6) 05/04/17 16:49 D-Dimer < 135.00 ng/mlDDU (0-234) 05/04/17 05:00 POC ABG pH 7.474 (7.35-7.45) H 05/06/17 04:24 POC ABG pCO2 37.2 (35-45) 05/06/17 04:24 POC ABG pO2 120 (80-105) H 05/06/17 04:24 POC ABG HCO3 27.4 05/06/17 04:24 POC ABG Total CO2 28 05/06/17 04:24 POC ABG O2 Sat 99 05/06/17 04:24 POC ABG Base Excess 4 05/06/17 04:24 FiO2 28 % 05/06/17 04:24 Sodium 137 mmol/L (137-145) 05/06/17 03:22 Potassium 4.0 mmol/L (3.6-5.0) 05/06/17 03:22 Chloride 99.1 mmol/L (98-107) 05/06/17 03:22 Carbon Dioxide 25 mmol/L (22-30) 05/06/17 03:22 Anion Gap 17 mmol/L 05/06/17 03:22 BUN 8 mg/dL (9-20) L 05/06/17 03:22 Creatinine 0.9 mg/dL (0.8-1.5) 05/06/17 03:22 Estimated GFR > 60 ml/min 05/06/17 03:22 BUN/Creatinine Ratio 9 % 05/06/17 03:22 Glucose 73 mg/dL (75-100) L 05/06/17 03:22 POC Glucose 90 (70-105) 05/07/17 05:32 Calcium 8.8 mg/dL (8.4-10.2) 05/06/17 03:22 Magnesium 1.90 mg/dL (1.7-2.3) 05/06/17 03:22 Total Bilirubin 0.50 mg/dL (0.1-1.2) 05/04/17 05:15 AST 24 units/L (5-40) 05/04/17 05:15 ALT 17 units/L (7-56) 05/04/17 05:15 Alkaline Phosphatase 109 units/L (35-129) 05/04/17 05:15 Troponin T 0.090 ng/mL (0.00-0.029) H 05/04/17 10:13 Total Protein 7.6 g/dL (6.3-8.2) 05/04/17 05:15 Albumin 4.1 g/dL (3.9-5) 05/04/17 05:15 Albumin/Globulin Ratio 1.2 % 05/04/17 05:15 Triglycerides 97 mg/dL (2-149) 05/04/17 07:50 Cholesterol 176 mg/dL (50-199) 05/04/17 07:50 LDL Cholesterol Direct 114 mg/dL (50-130) 05/04/17 07:50 HDL Cholesterol 43 mg/dL (40-59) 05/04/17 07:50 Cholesterol/HDL Ratio 4.09 % 05/04/17 07:50 Urine Color Yellow (Yellow) 05/04/17 07:41 Urine Turbidity Clear (Clear) 05/04/17 07:41 Urine pH 6.0 (5.0-7.0) 05/04/17 07:41 Ur Specific [place] 1.013 (1.003-1.030) 05/04/17 07:41 Urine Protein <15 mg/dl mg/dL (Negative) 05/04/17 07:41 Urine Glucose (UA) Neg mg/dL (Negative) 05/04/17 07:41 Urine Ketones Neg mg/dL (Negative) 05/04/17 07:41 Urine Blood Neg (Negative) 05/04/17 07:41 Urine Nitrite Neg (Negative) 05/04/17 07:41 Urine Bilirubin Neg (Negative) 05/04/17 07:41 Urine Urobilinogen < 2.0 mg/dL (<2.0) 05/04/17 07:41 Ur Leukocyte Esterase Neg (Negative) 05/04/17 07:41 Urine WBC (Auto) 1.0 /HPF (0.0-6.0) 05/04/17 07:41 Urine RBC (Auto) 4.0 /HPF (0.0-6.0) 05/04/17 07:41 U Epithel Cells (Auto) < 1.0 /HPF (0-13.0) 05/04/17 07:41 Urine Mucus Few /HPF 05/04/17 07:41 Urine Opiates Screen Presumptive negative 05/04/17 07:41 Urine Methadone Screen Presumptive negative 05/04/17 07:41 Ur Barbiturates Screen Presumptive negative 05/04/17 07:41 Ur Phencyclidine Scrn Presumptive negative 05/04/17 07:41 Ur Amphetamines Screen Presumptive negative 05/04/17 07:41 U Benzodiazepines Scrn Presumptive positive 05/04/17 07:41 Urine Cocaine Screen Presumptive negative 05/04/17 07:41 U Marijuana (THC) Screen Presumptive positive 05/04/17 07:41 Drugs of Abuse Note Disclamer 05/04/17 07:41
--- NOTE | 2017-05-07 12:03 | Progress Note ---
Assessment and Plan AMS -resolved Ventricular tachycardia s/p cardioversion [facility] findings: bypass grafts are patent Severe [place] vessel disease LVEF 45% by LV gram Abnormal ECG CAD s/p CABG 5 years ago in [place] Non-compliance Obesity Recommendations: Continue medical therapy for coronary artery disease. Echocardiogram. Lifevest before discharge. Stable to transfer to telemetry. Subjective Date of service: 05/07/17 Principal diagnosis: Respiratory failure Interval history: Patient extubated on 05/06. He denies chest pain and shortness of breath. Objective Vital Signs Temp Pulse Pulse Pulse Pulse Resp Resp 05/07/17 11:34 98.6 F 05/07/17 10:24 89 05/07/17 10:23 82 05/07/17 10:00 75 12 05/07/17 09:01 70 15 05/07/17 08:41 05/07/17 08:00 98.5 F 81 68 9 L 05/07/17 07:01 66 16 05/07/17 06:01 70 15 05/07/17 05:00 66 16 05/07/17 04:00 61 13 17 05/07/17 03:53 98.4 F 05/07/17 03:00 69 17 05/07/17 02:00 66 17 05/07/17 01:00 80 16 05/07/17 00:00 86 20 05/06/17 23:35 99.9 F H 05/06/17 23:00 91 H 13 05/06/17 22:00 92 H 18 05/06/17 21:21 133 H 05/06/17 21:00 104 H 15 05/06/17 20:16 27 H 05/06/17 20:00 98.9 F 106 H 133 H 136 H 127 H 11 L 17 05/06/17 19:01 05/06/17 19:00 05/06/17 18:30 99 H 15 05/06/17 18:00 101 H 20 05/06/17 17:30 95 H 16 05/06/17 17:00 98.5 F 99 H 15 05/06/17 16:30 109 H 20 05/06/17 16:00 109 H 21 05/06/17 15:30 113 H 14 05/06/17 15:00 105 H 12 05/06/17 14:30 111 H 26 H 05/06/17 14:00 113 H 14 05/06/17 13:30 109 H 18 05/06/17 13:00 106 H 108 H 14 05/06/17 12:36 16 05/06/17 12:30 105 H 19 05/06/17 12:06 12 05/06/17 12:00 99.4 F 105 H 13 Resp BP Pulse Ox 05/07/17 11:34 05/07/17 10:24 158/85 05/07/17 10:23 158/85 05/07/17 10:00 158/85 99 05/07/17 09:01 151/88 100 05/07/17 08:41 98 05/07/17 08:00 151/88 98 05/07/17 07:01 137/64 97 05/07/17 06:01 137/64 95 05/07/17 05:00 132/68 98 05/07/17 04:00 18 132/68 95 05/07/17 03:53 05/07/17 03:00 157/82 97 05/07/17 02:00 157/82 96 05/07/17 01:00 149/79 96 05/07/17 00:00 149/79 95 05/06/17 23:35 05/06/17 23:00 156/90 96 05/06/17 22:00 156/90 98 05/06/17 21:21 161/112 05/06/17 21:00 141/87 05/06/17 20:16 05/06/17 20:00 25 H 149/124 97 05/06/17 19:01 149/124 05/06/17 19:00 149/124 100 05/06/17 18:30 141/85 97 05/06/17 18:00 156/93 97 05/06/17 17:30 130/97 97 05/06/17 17:00 130/97 97 05/06/17 16:30 154/85 99 05/06/17 16:00 162/85 100 05/06/17 15:30 163/94 97 05/06/17 15:00 152/93 97 05/06/17 14:30 168/102 99 05/06/17 14:00 168/102 96 05/06/17 13:30 160/93 99 05/06/17 13:00 172/88 96 05/06/17 12:36 05/06/17 12:30 172/88 96 05/06/17 12:06 05/06/17 12:00 181/94 97 - Physical Examination General: No Apparent Distress HEENT: Positive: PERRL Neck: Positive: neck supple Cardiac: Positive: Reg Rate and Rhythm Lungs: Positive: Decreased Breath Sounds Neuro: Positive: Grossly Intact
--- NOTE | 2017-05-07 14:00 | Progress Note ---
Assessment and Plan Imp: 1. VT 2. ICMP 3. CAD 4. Chronic THC smoker 5. Pulm edema, resolved 6. Acute respiratory failure, hypoxia; resolved Rec: 1. Stable for d/c pulm-oh; plan is per cardiology 2. Should stop all smoking 3. Will sign off; call with questions, or if new pulm issues arise Plan of care reviewed w/ patient, he understands/agrees Subjective Date of service: 05/07/17 Principal diagnosis: Respiratory failure Interval history: Extubated. On RA. No complaints. Ambulating. Active Medications Albuterol (Proventil) 2.5 mg IH Q4HRT PRN PRN Reason: Shortness Of Breath Amlodipine Besylate (Norvasc) 5 mg PO QDAY [facility] Last Admin: 05/07/17 10:24 Dose: 5 mg Aspirin (Aspirin) 325 mg PO QDAY [facility] Last Admin: 05/07/17 10:23 Dose: 325 mg Atorvastatin Calcium (Lipitor) 40 mg PO QHS [facility] Last Admin: 05/06/17 23:21 Dose: 40 mg Bisacodyl (Dulcolax) 10 mg [place] QDAY PRN PRN Reason: Constipation unrelieved by MOM Clopidogrel Bisulfate (Plavix) 75 mg PO QDAY [facility] Last Admin: 05/07/17 10:23 Dose: 75 mg Heparin Sodium (Porcine) (Heparin) 5,000 unit SUB-Q Q8HR [facility] Last Admin: 05/07/17 05:42 Dose: Not Given Hydralazine HCl (Apresoline) 10 mg IV Q4H PRN PRN Reason: SBP > 180 OR DBP > 110 Last Admin: 05/06/17 11:00 Dose: 10 mg Levetiracetam (Keppra) 500 mg PO BID [facility] Last Admin: 05/07/17 10:23 Dose: 500 mg Levofloxacin (Levaquin) 750 mg PO Q24H [facility] Stop: 05/08/17 10:01 Last Admin: 05/07/17 10:23 Dose: 750 mg Lorazepam (Ativan) 2 mg IV Q4H PRN PRN Reason: Seizures Metoprolol Tartrate (Lopressor) 50 mg PO BID [facility] Last Admin: 05/07/17 10:23 Dose: 50 mg Morphine Sulfate (Morphine) 2 mg IV Q4H PRN PRN Reason: Pain, Moderate (4-6) Last Admin: 05/06/17 20:16 Dose: 2 mg Ondansetron HCl (Zofran) 4 mg IV Q4H PRN PRN Reason: Nausea And Vomiting Last Admin: 05/06/17 17:05 Dose: 4 mg Objective Vital Signs - 12hr 05/07/17 05/07/17 05/07/17 02:00 03:00 03:53 Temperature 98.4 F Pulse Rate 66 69 Pulse Rate [ From Monitor] Respiratory 17 17 Rate Respiratory Rate [Chest] Respiratory Rate [Right Leg ] Blood Pressure 157/82 157/82 O2 Sat by Pulse 96 97 Oximetry 05/07/17 05/07/17 05/07/17 04:00 05:00 06:01 Temperature Pulse Rate 61 66 70 Pulse Rate [ From Monitor] Respiratory 13 16 15 Rate Respiratory 17 Rate [Chest] Respiratory 18 Rate [Right Leg ] Blood Pressure 132/68 132/68 137/64 O2 Sat by Pulse 95 98 95 Oximetry 05/07/17 05/07/17 05/07/17 07:01 08:00 08:41 Temperature 98.5 F Pulse Rate 66 81 Pulse Rate [ 68 From Monitor] Respiratory 16 9 L Rate Respiratory Rate [Chest] Respiratory Rate [Right Leg ] Blood Pressure 137/64 151/88 O2 Sat by Pulse 97 98 98 Oximetry 05/07/17 05/07/17 05/07/17 09:01 10:00 10:23 Temperature Pulse Rate 70 75 82 Pulse Rate [ From Monitor] Respiratory 15 12 Rate Respiratory Rate [Chest] Respiratory Rate [Right Leg ] Blood Pressure 151/88 158/85 158/85 O2 Sat by Pulse 100 99 Oximetry 05/07/17 05/07/17 05/07/17 10:24 11:01 11:34 Temperature 98.6 F Pulse Rate 89 64 Pulse Rate [ From Monitor] Respiratory 13 Rate Respiratory Rate [Chest] Respiratory Rate [Right Leg ] Blood Pressure 158/85 158/85 O2 Sat by Pulse 98 Oximetry 05/07/17 12:01 Temperature Pulse Rate 70 Pulse Rate [ From Monitor] Respiratory 16 Rate Respiratory Rate [Chest] Respiratory Rate [Right Leg ] Blood Pressure 141/87 O2 Sat by Pulse 97 Oximetry Constitutional: no acute distress, alert Eyes: non-icteric ENT: oropharynx moist Effort: normal Ascultation: Bilateral: clear Cardiovascular: regular rate and rhythm (no mrg) Gastrointestinal: normoactive bowel sounds, soft, non-tender Integumentary: normal Extremities: no cyanosis, no edema, pink and warm Neurologic: normal mental status, non-focal exam, pupils equal and round, CN II- XII normal, motor strength normal and Psychiatric: mood appropriate, affect normal CBC and BMP: 05/06/17 03:22 05/06/17 03:22 ABG, PT/INR, D-dimer: ABG POC ABG pH 7.474 (7.35-7.45) H 05/06/17 04:24 POC ABG pCO2 37.2 (35-45) 05/06/17 04:24 POC ABG pO2 120 (80-105) H 05/06/17 04:24 POC ABG HCO3 27.4 05/06/17 04:24 POC ABG Total CO2 28 05/06/17 04:24 POC ABG O2 Sat 99 05/06/17 04:24 PT/INR, D-dimer PT 13.3 Sec. (12.2-14.9) 05/04/17 16:49 INR 0.96 (0.87-1.13) 05/04/17 16:49 D-Dimer < 135.00 ng/mlDDU (0-234) 05/04/17 05:00 Abnormal lab findings: Abnormal Labs 05/04/17 05/04/17 05/05/17 10:13 16:49 04:27 Hct 46.0 H [place] % (Auto) 9.6 H Seg Neutrophils % 71.6 H POC ABG pH POC ABG pO2 BUN Glucose POC Glucose Troponin T 0.090 H 05/05/17 05/05/17 05/06/17 04:27 04:50 03:22 Hct [place] % (Auto) Seg Neutrophils % POC ABG pH 7.456 H POC ABG pO2 146 H BUN 7 L 8 L Glucose 73 L POC Glucose Troponin T 05/06/17 05/06/17 05/06/17 04:24 06:45 23:59 Hct [place] % (Auto) Seg Neutrophils % POC ABG pH 7.474 H POC ABG pO2 120 H BUN Glucose POC Glucose 115 H 106 H Troponin T Chest x-ray: report reviewed, image reviewed (clear lungs)
[2017-05-08 05:45] VITALS: BP 140/78
[2017-05-08] MEDS: HEPARIN SUB-Q SCH (05:53)
[2017-05-08 07:12] LABS: Hematocrit 45.8 % (35.5-45.6); Hemoglobin 15.3 gm/dl (11.8-15.2); Mean Corpuscular HGB Conc 34 % (32-34); Mean Corpuscular Hemoglobin 30 pg (28-32); Mean Corpuscular Volume 89 fl (84-94); Platelet Count 218 K/mm3 (140-440); Red Blood Count 5.16 M/mm3 (3.65-5.03); Red Cell Distribution Width 14.3 % (13.2-15.2)
[2017-05-08 07:34] LABS: Anion Gap 21 mmol/L; BUN/Creatinine Ratio 13; Blood Urea Nitrogen 10 mg/dL (9-20); Calcium 9.1 mg/dL (8.4-10.2); Carbon Dioxide 25 mmol/L (22-30); Chloride 99.3 mmol/L (98-107); Glucose 90 mg/dL (75-100); Potassium 4.2 mmol/L (3.6-5.0); Sodium 141 mmol/L (137-145)
[2017-05-08] MEDS: LOPRESSOR PO SCH (10:14)
[2017-05-08] MEDS: KEPPRA PO SCH ×2 (10:14→10:15)
[2017-05-08] MEDS: LEVAQUIN PO SCH (10:15)
[2017-05-08] MEDS: PLAVIX PO SCH (10:15)
[2017-05-08] MEDS: ASPIRIN PO SCH (10:15)
[2017-05-08] MEDS: NORVASC PO SCH (10:15)
--- NOTE | 2017-05-08 10:15 | Progress Note ---
Assessment and Plan AMS -resolved Ventricular tachycardia s/p cardioversion Abnormal ECG LHC findings: bypass grafts are patent Severe [place] vessel disease LVEF 45% by LV gram CAD s/p CABG 5 years ago in [place] Non-compliance Obesity A lifevest was recommended but the patient declines. Discussed extensively, the risks and benefits but the patient declines lifevest therapy and once to remain on medial therapy. Stable, cardiac oh. Once discharge, follow up with [facility] within 3-5 days. Subjective Date of service: 05/08/17 Principal diagnosis: Respiratory failure Interval history: Patient has no complaints. Wants to go home. Objective Vital Signs Temp Pulse Resp BP Pulse Ox 05/08/17 04:30 98.6 F 72 18 140/78 97 05/07/17 22:00 93 H 05/07/17 20:12 99.1 F 90 18 143/81 98 05/07/17 16:23 98.8 F 71 18 139/85 99 05/07/17 16:00 96 05/07/17 12:01 70 16 141/87 97 05/07/17 11:34 98.6 F 05/07/17 11:01 64 13 158/85 98 05/07/17 10:24 89 158/85 05/07/17 10:23 82 158/85 - Physical Examination General: No Apparent Distress HEENT: Positive: PERRL Neck: Positive: neck supple Cardiac: Positive: Reg Rate and Rhythm Neuro: Positive: Grossly Intact - Labs and Meds CBC 05/08/17 Range/Units 06:17 WBC 6.0 (4.5-11.0) K/mm3 RBC 5.16 H (3.65-5.03) M/mm3 Hgb 15.3 H (11.8-15.2) gm/dl Hct 45.8 H (35.5-45.6) % Plt Count 218 (140-440) K/mm3 Comprehensive Metabolic Panel 05/08/17 Range/Units 06:17 Sodium 141 (137-145) mmol/L Potassium 4.2 (3.6-5.0) mmol/L Chloride 99.3 (98-107) mmol/L Carbon Dioxide 25 (22-30) mmol/L BUN 10 (9-20) mg/dL Creatinine 0.8 (0.8-1.5) mg/dL Glucose 90 (75-100) mg/dL Calcium 9.1 (8.4-10.2) mg/dL
--- NOTE | 2017-05-08 11:07 | Discharge Summary ---
Providers - Providers Date of Admission: 05/04/17 08:18 Attending physician: BEATRIZ LYNN MD 05/04/17 08:24 Consult to Physician [CONS] Routine Consulting Provider: FERNANDO NARAYANAN Reason For Exam: Seizure Place consult to:: NEURO Notified:: Y Was contact made?: Yes If yes, spoke with:: OFFICE DEBORA Time called:: 10:35 05/04/17 08:27 Consult to Physician [CONS] Routine Consulting Provider: AUDREY MARCIAL Reason For Exam: ACS Place consult to:: cardio Notified:: y Phone number called:: yes Was contact made?: Yes Comment:: DR MARCIAL SAW PT IN ER 05/04/17 18:33 Consult to Cardiac Rehabilitation [CONS] Routine Reason For Exam: Cardiac Rehab Evaluation 05/05/17 12:21 Consult to Physician [CONS] Routine Consulting Provider: HENOK MOORE Reason For Exam: CRITICAL CARE Place consult to:: Dr. Moore Notified:: Yes If yes, spoke with:: Dr. Moore Time called:: 12:26 Primary care physician: TOWEL WEAVER Hospitalization Condition: Stable Hospital course: need life vest per Cardiology Addendum entered and electronically signed by GREGG WEAVER MD 05/07/17 11: 52: cardiac cath done Original Note: Assessment and Plan Assessment and plan: Patient is a 56-year-old man with history of coronary artery disease status post CABG and hypertension who presented from home to the emergency department via EMS due to severe chest pain awaken him out of sleep. In the emergency department, he went into V. tach w/extremely hypertension and syncopal seizure activity requiring cardioversion followed by intubation. He was found to have ST elevation and was sent to cardiac catheterization which showed severe [place] disease but patent cardiac grafts with ejection fraction 45%. Patient doesn't believe in Western medications, he takes black walnut extract daily, garlic and multiple other herbals per his sister, Leta gibson Sky ([place]). I spoke with cousin Tessa, sister Sky at nursing station (pt is , has multiple children, mother is alive, father is ) -Acute hypoxic respiratory failure due to dangerous arrhythmia: Continue mechanical ventilator, consult to critical care medicine -Unstable ventricular tachycardia status post cardioversion: Echo ordered, cardiology following -Chest pain, most likely related to vasospasm: We'll defer to cardiology -Syncopal seizure most likely due to arrhythmia: brain mri ordered, on katie, neuro consulted -Acute encephalopathy due to the above -DVT prophylaxis: Subcutaneous heparin sister Sky at bedside. Extubate 05/06/2017 He is refusing MRI Scheduled for cardiac catheterization tomorrow Okay to transfer out of ICU Patient refused to wait for lifevest but they will call him Disposition: [id number] LEFT AGAINST MED ADVICE Exam - Constitutional Vitals: Temp Pulse Resp BP Pulse Ox 98.6 F 72 18 140/78 97 05/08/17 04:30 05/08/17 04:30 05/08/17 04:30 05/08/17 04:30 05/08/17 04:30 Plan Activity: advance as tolerated, no driving until cleared by PCP, fall precautions Diet: low fat, low cholesterol, low salt Special Instructions: record daily weights, record daily BP diary Follow up with: PRIMARY CARE, [Primary Care Provider] - 3-5 Days Forms: AMA Form Prescriptions: AtorvaSTATin [Lipitor] 40 mg PO QHS #30 tablet amLODIPine [Norvasc] 5 mg PO QDAY #30 tablet Aspirin [Aspirin TAB] 325 mg PO QDAY #30 tablet Clopidogrel [Plavix] 75 mg PO QDAY #30 tablet levETIRAcetam [Keppra TAB] 500 mg PO BID #60 tablet Metoprolol [Lopressor TAB] 50 mg PO BID #30 tablet
== END 2017-05-08 13:25 | disposition left against medical advice (07) | DRG 308 ==
LOC: ED 04:39 → CC1 08:18 → 4A 05-07 13:04
PROVIDERS: ADMIT Internal Medicine; ATTEND Internal Medicine
PROC: 4A033R1 Measurement of Arterial Saturation, Peripheral, Percutaneous Approach (ICD-10-PCS; principal; 2017-05-04)
PROC: 5A1945Z Respiratory Ventilation, 24-96 Consecutive Hours (ICD-10-PCS; 2017-05-04)
PROC: 0BH17EZ Insertion of Endotracheal Airway into Trachea, Via Natural or Artificial Opening (ICD-10-PCS; 2017-05-04)
DX: I47.2 Ventricular tachycardia (principal); J96.01 Acute respiratory failure with hypoxia; G93.40 Encephalopathy, unspecified; I16.1 Hypertensive emergency; Z23 Encounter for immunization; I10 Essential (primary) hypertension; F17.210 Nicotine dependence, cigarettes, uncomplicated; I25.10 Atherosclerotic heart disease of native coronary artery without angina pectoris; Z95.1 Presence of aortocoronary bypass graft; E66.9 Obesity, unspecified; Z91.19 Patient's noncompliance with other medical treatment and regimen; I25.5 Ischemic cardiomyopathy
CPT/HCPCS: 36415; 36600; 70450; 71010; 80048; 80053; 80061; 80307; 81001; 82803; 82962; 83735; 84484; 85007; 85014; 85018; 85025; 85027; 85049; 85379; 85610; 85730; 87070; 87205; 90686; 93005; 93010; 93306; 93459; 94002; 94003; 95819; A9270-GY; C1760; J0330; J0360; J1644; J1940; J1953; J1956; J2250; J2270; J2405; J2704; J3010; J7040; Q9967